=== PATIENT | female | born 2000 | race African-American/Black ===

== ENCOUNTER 2018-02-21 20:19 | Inpatient (IN) | payer BC ==
[~2018-02-21 20:19] MED LIST: ISOVUE-370 76%-LOCM 1 ML ONE
[2018-02-21] MEDS ORDERED: Morphine 4 MG/ML VIAL ONE ×2 (21:29→23:58)
[2018-02-21] MEDS ORDERED: Ondansetron HCl/PF 4 MG/2 ML Vial ONE (21:30)
[2018-02-21] MEDS ORDERED: Acetaminophen 500 MG TAB ONE (21:30)
[2018-02-21 21:50] LABS: #Lymphocytes 0.9 thou/uL (1.20-3.40); #Monocytes 0.4 thou/uL (0.11-0.59); %Basophils 0.4 % (0.0-1.0); %Eosinophils 0.5 % (0.0-10.0); %Lymphocytes 14.1 % (28.0-48.0); %Monocytes 6.5 % (0.0-4.0); %Neutrophils 78.5 % (31.0-61.0); Hemoglobin 11.4 g/dL (12.0-16.0); Mean Corpuscular HGB CONC 33.6 g/dL (32.0-36.0); Mean Corpuscular Hemoglobin 27.1 pg (25.0-35.0); Mean Corpuscular Volume 80.5 fl (77.0-87.0); Mean Platelet Volume 6.3 fL (7.4-10.4); Platelet Count 593 thou/uL (130-400); RBC Distribution Width 15.5 % (11.5-14.5); Red Blood Cell (RBC) Count 4.21 mill/uL (4.00-5.20); White Blood Cell (WBC) Count 6.4 thou/uL (4.8-10.8)
[2018-02-21 21:58] LABS: BHCG - Serum Negative (NEGATIVE); Pregs Control Background? CLEAR/WHITE (CLR/WHITE); Pregs Control Bar Appear? YES (CONTROL BAR)
[2018-02-21 22:12] LABS: ALT (SGPT) 15 U/L (8-55); AST (SGOT) 23 U/L (5-30); Albumin 3.3 g/dL (3.5-5.0); Alkaline Phosphatase 51 U/L (40-150); Anion Gap 13 mmol/L (10-20); BUN (Urea Nitrogen) 9 mg/dL (8.4-21.0); Bilirubin, Total 0.4 mg/dL (0.2-1.2); Calc. Creatinine Clearance 0 mL/min (70-130); Calcium 9.1 mg/dL (7.8-10.44); Carbon Dioxide 22 mmol/L (22-29); Chloride 105 mmol/L (98-107); Estimated GFR-MDRD Greater than 90; Globulin 5.4 g/dL (2.4-3.5); Glucose 106 mg/dL (70-105); Potassium 3.7 mmol/L (3.5-5.1); Protein, Total 8.7 g/dL (6.0-8.3); Sodium 136 mmol/L (136-145)
--- NOTE | 2018-02-21 22:43 | CT ---
CT ABDOMEN AND PELVIS WITH IV CONTRAST: 02/21/18 HISTORY: Bodyaches since last week. Fever. Abdominal pain that is exacerbated by coughing. COMPARISON: None available. FINDINGS: There is a small left pleural effusion with associated passive atelectasis. The right lung base is cl ear. The liver is enlarged in craniocaudal dimensions, but this may be related to normal variant. Liver ot herwise has a normal CT appearance. The spleen, pancreas, bilateral adrenal glands, kidneys, abdominal aorta, and urinary bladder demonst rate a normal CT appearance. The endometrium is fluid filled and distended. Moderate amount of retained fecal material is seen in the colon. The appendix is not definitely visualized, but no secondary signs are seen to suggest appendicitis. F luid filled tubular structures in the pelvis adjacent to the uterus which is thought to be related to fluid filled loops of unopacified small bowel. No free fluid, fluid collection, or lymphadenopathy is seen in the abdomen or pelvis. Osseous structures appear intact. IMPRESSION: 1. Fluid in endometrial canal. The endometrium is distended. Further evaluation with pelvic ultr asound is recommended. 2. Small left pleural effusion and atelectasis. 3. Element of constipation. 4. Above findings discussed with Dr. Finley in the Emergency Department on 02/21/18 at 2233 hours . POS: [facility]
[2018-02-21 22:57] LABS: Bilirubin Negative (Negative); Blood, Urine Negative (Negative); Clarity CLEAR (Clear); Glucose, Urine (Dipstick) Negative (Negative); Leukocyte Negative (Negative); Nitrite Negative (Negative); Protein, Urine (Dipstick) Negative (Neg-Trace)
[2018-02-21 22:59] LABS: Specific Gravity, Urine Greater than 1.060 (1.002-1.036)
--- NOTE | 2018-02-21 23:27 | RAD ---
PA AND LATERAL CHEST X-RAY 02/21/18 HISTORY: Fever. FINDINGS: The cardiac silhouette and pulmonary vasculature are within normal limits. The lungs are clear. There is contrast seen in the renal collecting systems related to recent contrasted study. Osseous structu res are intact. IMPRESSION: No acute cardiopulmonary process. POS: [facility]
[2018-02-21] MEDS ORDERED: Piperacillin/Tazobactam 3.375 GM in Sodium Chloride 0.9% 100 ML IVPB SCH (23:30)
[2018-02-21 23:59] LABS: MONO NEGATIVE CONTROL ZONE White (Negative) (White); MONO POSITIVE CONTROL Pink Line (Positive) (PINK/RED); Mononucleosis NEGATIVE (NEGATIVE)
[2018-02-22] MEDS ORDERED: cefOXitin 2 GM in Sodium Chloride 0.9% 100 ML IVPB SCH (01:45)
[2018-02-22] MEDS ORDERED: Doxycycline 100 MG CAP PO SCH (01:45)
[2018-02-22] MEDS ORDERED: Acetaminophen 325 MG TAB PO PRN (01:59)
[2018-02-22] MEDS ORDERED: Calcium Carbonate 500 MG ChewTAB PO PRN (02:02)
[2018-02-22] MEDS ORDERED: Ondansetron ODT 4 MG TAB PO PRN (02:02)
[2018-02-22] MEDS ORDERED: Senokot 8.6 MG TAB PO PRN (02:02)
[2018-02-22] MEDS ORDERED: Milk Of Magnesia 30 ML UDCUP PO PRN (02:02)
[2018-02-22] MEDS: Sodium Chloride 0.9% 1,000 ML IV SCH ×3 (02:23→18:24)
--- NOTE | 2018-02-22 04:49 | HP ---
DATE OF ADMISSION: 02/22/2018 CHIEF COMPLAINT: Generalized aches. HISTORY OF PRESENT ILLNESS: Patient is a 17-year-old female with recent strep throat diagnosed at [facility] presented to the emergency room with above complaints. Recently, patient was diagnosed with strep throat at [facility]. She was treated with intramuscular Bicillin 1,200,000 units. She continues to have sore throat along with low-grade fever. There is also some cough, which is essentially nonproductive. Over the last two days, patient developed abdominal discomfort that is more or less generalized with some nausea. She denies any vomiting. She is currently on control and does not have menstrual periods. She denies any sick contacts. In the emergency room, her initial vital signs showed temperature 101.5 with a T -max of 102.9, respirations 24, pulse rate of 122 with a blood pressure 136/83 with O2 saturation 100% on room air. Chest x-ray was negative for acute findings. CT scan of the abdomen and pelvis with IV contrast showed fluid in the endometrial canal with distended endometrium and small left pleural effusion with atelectasis. test was negative. Monospot test was negative. She received morphine, IV fluids, Zofran, Tylenol, cefoxitin, doxycycline and Zosyn in the emergency room. PAST MEDICAL HISTORY: Reviewed with the patient and none. PAST SURGICAL HISTORY: Reviewed with the patient and none. ALLERGIES: No known drug allergies. HOME MEDICATIONS: Reviewed with the patient and none. SOCIAL HISTORY: She denies current use of smoking. She has history of cannabis abuse in the past. She lives at home. FAMILY HISTORY: Negative for heart disease or malignancy. REVIEW OF SYSTEMS: The following complete review of systems was negative, unless otherwise mentioned in the HPI or below: Constitutional: Weight loss or gain, ability to conduct usual activities. Skin: Rash, itching. Eyes: Double vision, pain. ENT/Mouth: Nose bleeding, neck stiffness, pain, tenderness. Cardiovascular: Palpitations, dyspnea on exertion, orthopnea. Respiratory: Shortness of breath, wheezing, cough, hemoptysis, fever, or night sweats. Gastrointestinal: Poor appetite, abdominal pain, heartburn, nausea, vomiting, constipation, or diarrhea. Genitourinary: Urgency, frequency, dysuria, nocturia. Musculoskeletal: Pain, swelling. Neurologic/Psychiatric: Anxiety, depression. Allergy/Immunologic: Skin rash, bleeding tendency. PHYSICAL EXAMINATION: VITAL SIGNS: As discussed above. GENERAL: A 17-year-old female in no apparent distress. HEENT: Head atraumatic, normocephalic. Sclerae anicteric. Moist mucous membrane, no oral lesion. NECK: Supple, no JVD appreciated. No carotid bruit. LUNGS: Essentially clear to auscultation bilaterally. No wheezing, rales, or rhonchi. HEART: S1, S2 present. Regular rate, tachycardic. No rubs or gallops appreciated. ABDOMEN: Soft with mild generalized tenderness. No rebound, guarding, no costovertebral angle tenderness. EXTREMITIES: No edema or calf tenderness. NEUROLOGIC: Grossly nonfocal, moves all four extremities. PSYCHIATRIC: Alert, awake, oriented x3. SKIN: Warm and dry. LYMPH NODES: There is one lymph node palpable behind her right ear. LABORATORY AND X-RAY FINDINGS: CBC showed WBC 6.4 with hemoglobin 11.4, hematocrit 33.9, platelet of 593. Chemistries showed sodium 136, potassium 3.7 , chloride 105, bicarbonate 22, BUN 9, creatinine 0.72. Urinalysis was negative for wbc, bacteria. Specific gravity was greater than 1.06. Chest x-ray by my review as discussed above. CT scan of the abdomen as discussed above. Telemetry monitoring by my review showed sinus tachycardia. IMPRESSION: 1. Sepsis, probably secondary to genitourinary infection, ? acute PID. Vaginal ultrasound has been done, report pending at this time. 2. Generalized pain secondary to #1. 3. Chronic anemia, normochromic normocytic. 4. Constipation on the CT. 5. Small left pleural effusion and atelectasis. 6. Sinus tachycardia secondary to sepsis. 7. Dehydration. PLAN: Patient will be monitored on the medical floor. We will continue cefoxitin and doxycycline for possible PID. SWEET PICKLED FRUIT MAKER consult in the morning. IV hydration. We will keep her n.p.o. past midnight for possible intervention if needed. Deep venous thrombosis prophylaxis with sequential compression devices. Blood and urine cultures have been sent. Plan of care was discussed with the patient in detail. She stated understanding. MTDD
[2018-02-22 06:01] LABS: #Lymphocytes 1.3 thou/uL (1.20-3.40); #Monocytes 0.5 thou/uL (0.11-0.59); #Neutrophils 4.6 thou/uL (1.40-6.50); %Basophils 0.2 % (0.0-1.0); %Eosinophils 0.2 % (0.0-10.0); %Lymphocytes 20.5 % (28.0-48.0); %Monocytes 7.9 % (0.0-4.0); %Neutrophils 71.2 % (31.0-61.0); Hemoglobin 9.7 g/dL (12.0-16.0); Mean Corpuscular HGB CONC 32.7 g/dL (32.0-36.0); Mean Corpuscular Hemoglobin 26.5 pg (25.0-35.0); Platelet Count 507 thou/uL (130-400); RBC Distribution Width 15.2 % (11.5-14.5); Red Blood Cell (RBC) Count 3.64 mill/uL (4.00-5.20); White Blood Cell (WBC) Count 6.4 thou/uL (4.8-10.8)
[2018-02-22 06:06] LABS: BHCG - Serum Negative (NEGATIVE); Pregs Control Background? CLEAR/WHITE (CLR/WHITE); Pregs Control Bar Appear? YES (CONTROL BAR)
[2018-02-22 06:12] LABS: Anion Gap 10 mmol/L (10-20); BUN (Urea Nitrogen) 8 mg/dL (8.4-21.0); Calc. Creatinine Clearance 108 mL/min (70-130); Calcium 8.3 mg/dL (7.8-10.44); Carbon Dioxide 20 mmol/L (22-29); Chloride 109 mmol/L (98-107); Estimated GFR-MDRD Greater than 90; Glucose 86 mg/dL (70-105); Potassium 3.8 mmol/L (3.5-5.1); Sodium 135 mmol/L (136-145)
[2018-02-22] MEDS: cefOXitin 2 GM in Sodium Chloride 0.9% 100 ML IVPB SCH ×3 (09:12→20:00)
[2018-02-22] MEDS: Doxycycline 100 MG CAP PO SCH ×2 (09:16→20:00)
[2018-02-22] MEDS ORDERED: Morphine 5 MG/ML SYRINGE SLOW IVP PRN (09:45)
--- NOTE | 2018-02-22 10:05 | ULT ---
PRELIMINARY REPORT/[facility]/EMERGENCY AFTER HOURS PROCEDURE: EXAM: US Pelvis, Transvaginal EXAM DATE/TIME: Exam ordered 02/21/2018 11:55 PM CLINICAL HISTORY: 17 years old, female; Pain; Other: Generalized abd pain TECHNIQUE: Real-time transvaginal pelvic ultrasound (complete) with image documentation. Transvaginal imaging wa s used for better evaluation of the endometrium and adnexa. COMPARISON: No relevant prior studies available. FINDINGS: Uterus/cervix: Endometrial cavity is distended to 2.6 cm in AP dimension with heterogeneous solid red scular material, presumably blood products. No myometrial mass. Right ovary: Unremarkable. No mass. Normal blood flow. Left ovary: Unremarkable. No mass. Normal blood flow. Free fluid: Small to moderate volume of complex free fluid in the pelvis. IMPRESSION: 1. Endometrial cavity is distended to 2.6 cm in AP dimension with heterogeneous solid avascular mater ial, presumably blood products. 2. Small to moderate volume of complex free fluid in the pelvis. Thank you for allowing us to participate in the care of your patient. Dictated and Authenticated by: James Trinidad MD 02/22/2018 2:13 AM Central Time ([place] & [place]) FINAL REPORT PELVIC ULTRASOUND: Date: 02/21/18 HISTORY: Generalized abdominal pain. Pelvic pain. COMPARISON: None. TECHNIQUE: Endovaginal imaging of the pelvis is performed. Ovaries interrogated with Parker scale, color flow, Dop pler imaging, and spectral waveform analysis. FINDINGS: This report is in agreement with the preliminary report by Lesa. There is heterogeneous avascular ech ogenic material in the endometrial cavity which may represent blood products. Correlate clinically. T here is free fluid in the pelvis. Ovaries have a normal echotexture. There is vascular flow to both o varies. POS: [facility]
[2018-02-22] MEDS: Morphine 5 MG/ML SYRINGE SLOW IVP PRN ×2 (13:28→18:24)
[2018-02-22] MEDS ORDERED: Polyethylene Glycol 3350 17 GM Packet PO SCH (13:45)
--- NOTE | 2018-02-22 14:34 | CON ---
DATE OF CONSULTATION: 02/22/2018 TIME OF CONSULTATION: 0645 hours. ADMITTING PHYSICIAN: Dr. Jamin Sim. CONSULTING PHYSICIAN: Dr. Gio Powers. REASON FOR CONSULTATION: Fever and uterine abnormality. HISTORY OF PRESENT ILLNESS: Ms. Oconnor is a 17-year-old 0, who presents with several days of malaise and fever. She reports mild lower abdominal pain. She was seen at the [facility], received Bicillin. She was seen at [facility] and had a temperature of 102.9 with a p ulse of 122 and a blood pressure of 130/68. She was admitted for sepsis by [facility] ospitalist. CT and ultrasound evaluation revealed a fluid-filled complex distended endometrial canal and a small amount of free fluid in the pelvis and was otherwise fairly unremarkable. The patient h as been admitted with a presumptive diagnosis of sepsis, possible PID, and consultation was obtained. REALTIME REPORTER HISTORY: Sexually active. No new partners. On Depo for approximately 2 years. The patient took a six-month approximately 3 months ago and her last menstrual period was 3 months ago. She milagros es vaginal discharge. Of note, she has not had GC or chlamydia. The patient was diagnosed with thanh kingston HSV-1 approximately a month ago, has not had a recurrent outbreak. PAST MEDICAL HISTORY: None. PAST SURGICAL HISTORY: None. ALLERGIES: Denies. MEDICATIONS: Currently, on doxycycline and Rocephin antibiotic vann. SOCIAL HISTORY: Denies tobacco, alcohol, or IV drug abuse. FAMILY HISTORY: Noncontributory. REVIEW OF SYSTEMS: Please see Sound H and P. Patient denies any significant vaginal discharge or dy spareunia. She does report mild cramps. PHYSICAL EXAMINATION: VITAL SIGNS: Current temperature is 99.0, pulse is 102, and respirations 18. GI/: Limited exam reveals an abdomen that is soft and nontender. She does have some discomfort to deep palpation in the lower midline and lower left quadrant. External exam is unremarkable. Bimanu al is deferred. EXTREMITIES: Without clubbing, cyanosis, or edema. LABORATORY STUDIES: Microbiology pending. Hematocrit is 29%. Her white count is 6.4. She has a pl atelet count of 507. She has a slight left shift with 71% neutrophils, 20% lymphocytes, no bands are noted. A repeat basic metabolic panel after admission is unremarkable. Serum test is neg ative. 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 Ultrasound reveals complex endometrial fluid. It does not appear to be at an echo level, consistent with fibroids and that is even more definite on the CT scan. Greatest bong meter is about 3-4 cm of the enlargement of the endometrial cavity. There is a mild amount of free f luid noted in the pelvis and maybe just physiologic. IMPRESSION: Likely hematometra of uncertain etiology. The patient does not have a history of menses that was suggestive of an obstructive process. Fluid-filled endometrial cavity is not a common find ing with pelvic inflammatory disease. No evidence of tubo-ovarian abscess is noted. PLAN: Recommend continuing antibiotics as prescribed. We will discuss with Dr. Valencia, who is OB ho spitalist coming on in approximately 1 hour. The patient may be a good candidate for D and C and hys teroscopy during hospitalization versus a reevaluation as an outpatient.
[2018-02-22] MEDS ORDERED: HYDROcodone/Acetaminophen 7.5/325 mg Tablet PO PRN (18:50)
[2018-02-22] MEDS: Ibuprofen 800 MG TAB PO PRN (20:19)
[2018-02-22] MEDS: Ondansetron HCl/PF 4 MG/2 ML Vial IVP PRN (22:39)
[2018-02-23] MEDS: cefOXitin 2 GM in Sodium Chloride 0.9% 100 ML IVPB SCH ×4 (03:47→19:57)
[2018-02-23] MEDS: Sodium Chloride 0.9% 1,000 ML IV SCH ×3 (03:49→19:56)
[2018-02-23] MEDS: Ibuprofen 800 MG TAB PO PRN (05:40)
[2018-02-23 06:26] LABS: #Lymphocytes 0.8 thou/uL (1.20-3.40); #Monocytes 0.4 thou/uL (0.11-0.59); #Neutrophils 3.8 thou/uL (1.40-6.50); %Eosinophils 0.5 % (0.0-10.0); %Lymphocytes 15.8 % (28.0-48.0); %Monocytes 8.7 % (0.0-4.0); Hemoglobin 9.2 g/dL (12.0-16.0); Mean Corpuscular Hemoglobin 26.8 pg (25.0-35.0); Mean Corpuscular Volume 81.1 fl (77.0-87.0); Mean Platelet Volume 6.3 fL (7.4-10.4); Platelet Count 468 thou/uL (130-400); RBC Distribution Width 15.5 % (11.5-14.5); Red Blood Cell (RBC) Count 3.44 mill/uL (4.00-5.20)
[2018-02-23 06:38] LABS: Anion Gap 10 mmol/L (10-20); BUN (Urea Nitrogen) 6 mg/dL (8.4-21.0); Calc. Creatinine Clearance 110 mL/min (70-130); Calcium 8.4 mg/dL (7.8-10.44); Carbon Dioxide 22 mmol/L (22-29); Chloride 110 mmol/L (98-107); Estimated GFR-MDRD Greater than 90; Glucose 84 mg/dL (70-105); Potassium 3.8 mmol/L (3.5-5.1); Sodium 138 mmol/L (136-145)
[2018-02-23] MEDS: Doxycycline 100 MG CAP PO SCH ×2 (08:06→21:28)
[2018-02-23] MEDS: HYDROcodone/Acetaminophen 7.5/325 mg Tablet PO PRN ×4 (08:07→23:34)
--- NOTE | 2018-02-23 08:11 | PRG ---
DATE OF SERVICE: 02/23/2018 SUBJECTIVE: Hospital day #2, Mefoxin and doxycycline day 2. The patient is feeling slightly better this morning. She has tolerated a regular diet. She has no vomiting. OBJECTIVE: VITAL SIGNS: Temperature now 98.0 degrees, pulse 94, respirations 16, blood pressure 113/56, T-max w as 101.3 at 8:00 p.m. last night. ABDOMEN: On physical exam, her abdomen shows no guarding or rebound. LABORATORY DATA: CBC this morning shows a white count of 5.0, hemoglobin and hematocrit of 9.2 and 2 7.9 respectively, with a platelet count of 468,000. 75% neutrophils are seen. Blood cultures show n o growth to date. Urine culture shows no growth at 12 hours. I did obtain another set of blood cult ures last night when she was febrile. ASSESSMENT: Abdominal pain, fever with presumptive diagnosis of pelvic inflammatory disease, current ly on Mefoxin and doxycycline. Cultures so far negative. The patient appears improved this morning. PLAN: At this time, I would continue antibiotics and observe for clinical improvement. I did defer her D and C yesterday, and we will consider doing this if she does not continue to improve.
[2018-02-23] MEDS ORDERED: FLU VACC QS2017-18 36 mo. & older 0.5 ML SYRINGE IM ONE (09:00)
[2018-02-23] MEDS ORDERED: Sodium Chloride 0.9% 1,000 ML IV SCH (20:19)
--- NOTE | 2018-02-23 20:19 | PDOC.PN ---
- Subjective Encounter Start Date: 02/23/18 Encounter Start Time: 10:45 Patient seen and examined. 7/10 lower abd discomfort. No N/V. No overnight events. - Objective Resuscitation Status: Resuscitation Status FULL:Full Resuscitation MAR Reviewed: Yes Vital Signs & Weight: Vital Signs (12 hours) Temp Pulse Resp BP 02/23/18 16:15 98.5 F 95 18 113/69 02/23/18 12:10 98.4 F 89 18 107/60 Weight Weight 115 lb 8.356 oz I&O: 02/22/18 02/23/18 02/24/18 06:59 06:59 06:59 Intake Total 434 1495 Output Total 350 Balance 84 1495 Result Diagrams: 02/23/18 05:30 02/23/18 05:30 Additional Labs: Microbiology 02/22/18 20:25 Venous blood - Right Arm Blood Culture - Preliminary Specimen has been received and culture in progress. No Growth to date. 02/22/18 20:19 Venous blood - Right Arm Blood Culture - Preliminary Specimen has been received and culture in progress. No Growth to date. 02/21/18 21:46 Venous blood - Left Arm Blood Culture - Preliminary NO GROWTH AT 48 HOURS 02/21/18 21:39 Venous blood - Left Arm Blood Culture - Preliminary NO GROWTH AT 48 HOURS Phys Exam - Physical Examination Constitutional: NAD Respiratory: no wheezing, no rhonchi Cardiovascular: RRR, no rub Gastrointestinal: soft, non-tender, positive bowel sounds Musculoskeletal: no edema Neurological: moves all 4 limbs Dx/Plan - Plan DVT proph w/SCDs IMPRESSION: 1. Sepsis, probably secondary to Acute PID. 2. Generalized pain secondary to #1. 3. Chronic anemia, normochromic normocytic. 4. Constipation on the CT. on stool softener 5. Small left pleural effusion and atelectasis. 6. Sinus tachycardia secondary to sepsis. 7. Dehydration. PLAN: * Cont Cefoxitin and Doxy * Video Surveillance Technician following * Cont gentle IV hydration * Cont to monitor * Ambulate Review of Systems - Review of Systems Respiratory: negative: Cough, Dry, Shortness of Breath, Hemoptysis, SOB with Excertion, Pleuritic Pain, Sputum, Wheezing Cardiovascular: negative: chest pain, palpitations, orthopnea, paroxysmal nocturnal dyspnea, edema, light headedness - Medications/Allergies Allergies/Adverse Reactions: Allergies Allergy/AdvReac Type Severity Reaction Status Date / Time No Known Drug Allergies Allergy Verified 02/22/18 02:05 Medications: Current Medications Acetaminophen (Tylenol) 650 mg PO Q4H PRN PRN Reason: Headache/Fever or Mild Pain Last Admin: 02/22/18 05:23 Dose: 650 mg Hydrocodone Bitart/Acetaminophen ([place] 7.5/325) 2 tab PO Q4H PRN PRN Reason: Moderate Pain (4-6) Last Admin: 02/23/18 18:29 Dose: 2 tab Hydrocodone Bitart/Acetaminophen ([place] 7.5/325) 1 tab PO Q4H PRN PRN Reason: Mild Pain (1-3) Last Admin: 02/23/18 03:47 Dose: 1 tab Calcium Carbonate (Tums) 1,000 mg PO Q4H PRN PRN Reason: Heartburn or Indigestion Doxycycline Hyclate (Vibramycin) 100 mg PO BID [facility] Last Admin: 02/23/18 08:06 Dose: 100 mg Cefoxitin Sodium 2 gm/ Sodium (Chloride) 100 mls @ 100 mls/hr IVPB 0200,0800, 1400,2000 [facility] Last Admin: 02/23/18 19:57 Dose: 100 mls Sodium Chloride (Normal Saline 0.9%) 1,000 mls @ 125 mls/hr IV .Q8H [facility] Last Admin: 02/23/18 19:56 Dose: 1,000 mls Ibuprofen (Motrin) 800 mg PO Q8H PRN PRN Reason: PAIN/FEVER Last Admin: 02/23/18 05:40 Dose: 800 mg Magnesium Hydroxide (Milk Of Magnesium) 30 ml PO DAILYPRN PRN PRN Reason: Constipation Morphine Sulfate (Morphine) 4 mg SLOW IVP Q4H PRN PRN Reason: Severe Pain (7-10) Last Admin: 02/22/18 18:24 Dose: 4 mg Ondansetron HCl (Zofran Odt) 4 mg PO Q6H PRN PRN Reason: Nausea/Vomiting Ondansetron HCl (Zofran) 4 mg IVP Q6H PRN PRN Reason: Nausea/Vomiting Last Admin: 02/22/18 22:39 Dose: 4 mg Saccharomyces Boulardii (Florastor) 250 mg PO DAILY [facility] Senna (Senokot) 2 tab PO HSPRN PRN PRN Reason: Constipation
[2018-02-23] MEDS: Ondansetron HCl/PF 4 MG/2 ML Vial IVP PRN (23:34)
[2018-02-24] MEDS: Ibuprofen 800 MG TAB PO PRN (02:27)
[2018-02-24] MEDS: cefOXitin 2 GM in Sodium Chloride 0.9% 100 ML IVPB SCH ×2 (02:27→10:38)
[2018-02-24] MEDS: Ondansetron HCl/PF 4 MG/2 ML Vial IVP PRN (05:31)
[2018-02-24] MEDS ORDERED: Magnesium Citrate 300 ML BOT PO SCH (07:45)
--- NOTE | 2018-02-24 08:09 | PRG ---
DATE OF SERVICE: 02/24/2018 HISTORY OF PRESENT ILLNESS: The patient is a 17-year-old admitted to the hospital for abdominal pain and overall malaise and fever. The patient was diagnosed with a possible PID by the hospitalist donny blue and consulted MECHANICAL TECHNICIAN hospitalist for evaluation. The patient is on cefoxitin and doxycycline. She has remained afebrile through her stay and her white count has been normal. On reviewing the record , the patient is noted to have stool noted on CT. The patient reports she has constipation, and when she does have a bowel movement that they are pebble like stools. She reports that her pain is impro blanca some as compared to yesterday, as she is able to move about without feeling pain. PHYSICAL EXAMINATION: VITAL SIGNS: Today, blood pressure is 124/72, temperature 98.0, pulse of 89, respiratory rate of 18. GENERAL: She appears to be in no acute distress. She is alert, oriented, cooperative, and pleasant to interact with. HEENT: Head is normocephalic, atraumatic. ABDOMEN: Soft. She has more tenderness on the right side than the left. LABORATORY DATA: CBC yesterday, white count of 5, hemoglobin of 9.2, hematocrit 27.9, platelets of 4 68,000. ASSESSMENT AND PLAN: The patient is a 17-year-old female, on cefoxitin and doxycycline for presumed pelvic inflammatory disease. Subjectively, the patient reports she is feeling a little bit better, a s the pain is not felt with activity. Patient reports significant constipation. I will be giving he r a bottle of magnesium citrate today in an effort to clean out her colon and revaluate her symptoms. We will defer all definitive decision making to her primary team. Dr. Cruz will be the oncoming O B/SORT MANAGER hospitalist and can reevaluate her this afternoon.
[2018-02-24] MEDS ORDERED: Saccharomyces boulardii 250 MG CAP PO SCH (09:00)
[2018-02-24] MEDS: Doxycycline 100 MG CAP PO SCH (10:40)
[2018-02-24 11:57] VITALS: BP 121/77; TEMP 97.8
--- NOTE | 2018-02-24 12:45 | PDOC.EVN ---
Event Note - Event Note Event Note: OBGyN follow up: Patient seen this AM by Dr Granados. As per Gynecology, we collecetd a GC/Chl culture today as one was not taken on admit. Although she has been on ABX therapy already, this collection will complete her diagnostic eval. Gynecology has signed off the care. For outpatient medication: The patient may continue Doxy 100mg po BID X 7 days and Flaghyl 500mg 1 po BID x 7 days. She may follow up with her OBGYN in 2 weeks or see any ObGyn at [facility] [place] on [address] (pt to call for appointment). Final discharge per Medicine.
--- NOTE | 2018-02-24 18:24 | DIS ---
DISCHARGE DISPOSITION: Home. FOLLOWUP: Follow up with primary care physician, Dr. Thapa in 1 week. Follow up with [facility] in 1 week. INPATIENT CONSULTANTS: DRIVE IN WAITER/WAITRESS Hospitalist. ALLERGIES: No known drug allergies. The patient was seen and examined on the day of discharge. Denies any new complaints, no chest pain, shortness of breath, or palpitations. DISCHARGE MEDICATIONS: Flagyl 500 mg twice daily for 1 week, doxycycline 100 mg twice daily for 1 we ek. BRIEF HOSPITAL COURSE: The patient is a 17-year-old female with recent strep throat, presented to [facility] with generalized aches and pains. Please refer to the history and physical dated 02/23/20 for further details. The patient was admitted to the medical floor with a diagnosis of acute PID (pelvic inflammatory dise ase). The patient was seen by RUBBER MOLD MAKER Hospitalist. A pelvic ultrasound showed distended endometrial cavity with solid avascular material. She also had a CT scan of the abdomen that showed some endomet rial thickening. She showed good improvement with IV antibiotics. The patient has been afebrile ove r the last 36 hours. The patient has been cleared for discharge by RUBBER MOLD MAKER. She was advised to follo w up with [facility] in 1 week. FINAL DIAGNOSES: 1. Sepsis secondary to acute pelvic inflammatory disease, improved with conservative measures. 2. Generalized aches and pains on admission secondary to #1. 3. Chronic normochromic normocytic anemia. 4. Constipation. 5. Sinus tachycardia secondary to sepsis. 6. Dehydration. 7. Small left pleural effusion and atelectasis. Plan of care was discussed with the patient in detail. She stated understanding.
[2018-02-25 22:30] LABS: Chlamydia by PCR Not Detected (NotDetected); GC by PCR Not Detected (NotDetected)
== END 2018-02-24 14:40 | disposition home or self-care (01) | DRG 872 ==
LOC: ERS 20:19 → 3SE 02-22 01:32
PROVIDERS: ADMIT Internal Medicine; ATTEND Internal Medicine
DX: A41.9 Sepsis, unspecified organism (principal); J90 Pleural effusion, not elsewhere classified; J98.11 Atelectasis; D50.0 Iron deficiency anemia secondary to blood loss (chronic); K59.00 Constipation, unspecified; E86.0 Dehydration; N73.9 Female pelvic inflammatory disease, unspecified; Z22.4 Carrier of infections with a predominantly sexual mode of transmission
CPT/HCPCS: 36415; 71045; 74177; 76856; 80048; 80053; 81003; 83605; 84703; 85025; 86308; 87040; 87086; 87491; 87591; 87804; 96361; 96365; 96375; J2270; J0694; J2405; J2543; J7050; Q0162

== ENCOUNTER 2018-02-27 11:34 | Emergency (ER) | payer BC ==
[2018-02-27 13:07] LABS: #Lymphocytes 0.8 thou/uL (1.20-3.40); #Monocytes 0.3 thou/uL (0.11-0.59); #Neutrophils 7.1 thou/uL (1.40-6.50); %Basophils 0.1 % (0.0-1.0); %Eosinophils 0.6 % (0.0-10.0); %Lymphocytes 9.8 % (28.0-48.0); %Monocytes 3.8 % (0.0-4.0); %Neutrophils 85.8 % (31.0-61.0); Hemoglobin 10.8 g/dL (12.0-16.0); Mean Corpuscular HGB CONC 33.5 g/dL (32.0-36.0); Mean Corpuscular Volume 80.7 fl (77.0-87.0); Mean Platelet Volume 5.9 fL (7.4-10.4); Platelet Count 682 thou/uL (130-400); RBC Distribution Width 15.9 % (11.5-14.5); Red Blood Cell (RBC) Count 3.99 mill/uL (4.00-5.20); White Blood Cell (WBC) Count 8.3 thou/uL (4.8-10.8)
[2018-02-27 13:27] LABS: ALT (SGPT) 60 U/L (8-55); AST (SGOT) 72 U/L (5-30); Albumin 3.2 g/dL (3.5-5.0); Alkaline Phosphatase 106 U/L (40-150); Anion Gap 13 mmol/L (10-20); BUN (Urea Nitrogen) 6 mg/dL (8.4-21.0); Bilirubin, Total 0.3 mg/dL (0.2-1.2); Calc. Creatinine Clearance 0 mL/min (70-130); Calcium 9.4 mg/dL (7.8-10.44); Carbon Dioxide 21 mmol/L (22-29); Chloride 107 mmol/L (98-107); Estimated GFR-MDRD Greater than 90; Globulin 5.4 g/dL (2.4-3.5); Glucose 90 mg/dL (70-105); Lipase 36 U/L (8-78); Potassium 3.6 mmol/L (3.5-5.1); Protein, Total 8.6 g/dL (6.0-8.3); Sodium 137 mmol/L (136-145)
[2018-02-27 13:29] LABS: BHCG - Serum Negative (NEGATIVE); Pregs Control Background? CLEAR/WHITE (CLR/WHITE); Pregs Control Bar Appear? YES (CONTROL BAR)
[2018-02-27] MEDS ORDERED: Acetaminophen 325 MG TAB ONE (14:02)
[2018-02-27] MEDS ORDERED: Ketorolac Tromethamine 30 MG/ML VIAL ONE (14:02)
--- NOTE | 2018-02-27 14:16 | ULT ---
ULTRASOUND PELVIC TRANSVAGINAL WITH DOPPLER: Date: 02/27/18 HISTORY: Pain. COMPARISON: Pelvic ultrasound dated 02/21/18. TECHNIQUE: Real-time Parker scale with color Doppler and spectral analysis of the pelvis was performed via transva ginal approach. FINDINGS: The uterus measures 7.3 x 4.9 x 3.6 cm. Endometrial thickness is 1.6 cm. Adequate vascular flow to both ovaries. There is complex debris within the endometrial cavity. IMPRESSION: Complex fluid in the endometrial canal, similar to comparison examination. This may represent hemorrh age or infected fluid. POS: [facility]
[2018-02-27 14:26] LABS: MONO NEGATIVE CONTROL ZONE White (Negative) (White); MONO POSITIVE CONTROL Pink Line (Positive) (PINK/RED); Mononucleosis NEGATIVE (NEGATIVE)
[2018-02-27 16:21] LABS: Bilirubin Negative (Negative); Blood, Urine Small (Negative); Clarity CLOUDY (Clear); Glucose, Urine (Dipstick) Negative (Negative); Leukocyte Negative (Negative); Nitrite Negative (Negative); Protein, Urine (Dipstick) Negative (Neg-Trace); Specific Gravity, Urine 1.014 (1.002-1.036); Urobilinogen 0.2 mg/dL (0.2-1.0); pH, Urine 7.5 (5.0-9.0)
[2018-02-27 16:23] LABS: WBC/HPF 0-3 HPF (0-3)
[2018-02-27 16:27] LABS: Pathc Cast-AUWi Flag 3.19 (0-2.49)
[2018-02-27 16:34] LABS: Amphetamine Not Detected (NotDetected); Barbiturates Screen Not Detected (NotDetected); Benzodiazepine Screen Not Detected (NotDetected); Cocaine Metabolite Screen Not Detected (NotDetected); Medtox Control Line Valid? VALID (VALID); Medtox Reader # READER 4; Methadone Not Detected (NotDetected); Methamphetamine Not Detected (NotDetected); Opiate Screen Not Detected (NotDetected); Oxycodone Screen Not Detected (NotDetected); Phencyclidine (PCP) Not Detected (NotDetected); THC/Cannabinoid Screen Not Detected (NotDetected); Tricyclic Screen Not Detected (NotDetected)
[2018-02-27 16:38] LABS: Bacteria/HPF 2+ HPF (None Seen)
[2018-02-27 16:39] LABS: Hyaline Casts/LPF 0-3 HYALINE CAST LPF (0-3 Hyaline); Manual Microscopic Reviewed? No Path Casts Seen; RBC/HPF 0-3 HPF (0-3); Renal Epithelial None Seen HPF (0-3); Transitional Epithelial NONE SEEN HPF (0-3)
== END 2018-02-27 17:44 | disposition home or self-care (01) ==
LOC: ERS 11:34
DX: B37.3 Candidiasis of vulva and vagina (principal); B37.0 Candidal stomatitis; B00.1 Herpesviral vesicular dermatitis
CPT/HCPCS: 36415; 76856; 80053; 80306; 81003; 81015; 83605; 83690; 84703; 85025; 86308; 96361; 96374; J1885

== ENCOUNTER 2018-03-12 10:59 | Outpatient (CLI) | payer BC | END 2018-03-12 11:00 | disposition home or self-care (01) | LOC: BICULT 10:59 | PROVIDERS: ATTEND Family Medicine | DX: R10.11 Right upper quadrant pain (principal) | CPT/HCPCS: 76705 ==

== ENCOUNTER 2018-10-08 11:12 | Emergency (ER) | payer BC ==
[2018-10-08 13:27] LABS: #Lymphocytes 0.6 thou/uL (1.20-3.40); #Monocytes 0.4 thou/uL (0.11-0.59); #Neutrophils 8.7 thou/uL (1.40-6.50); %Eosinophils 0.2 % (0.0-10.0); %Lymphocytes 6.6 % (28.0-48.0); %Monocytes 3.8 % (0.0-4.0); %Neutrophils 89.4 % (31.0-61.0); Hemoglobin 12.8 g/dL (12.0-16.0); Mean Corpuscular HGB CONC 31.7 g/dL (32.0-36.0); Mean Platelet Volume 7.3 fL (7.4-10.4); Platelet Count 428 thou/uL (130-400); RBC Distribution Width 14.9 % (11.5-14.5); Red Blood Cell (RBC) Count 4.91 mill/uL (4.00-5.20); White Blood Cell (WBC) Count 9.8 thou/uL (4.8-10.8)
--- NOTE | 2018-10-08 13:42 | RAD ---
2 VIEWS CHEST: Date: 10/08/18 PROVIDED CLINICAL HISTORY: Chest discomfort. Body aches. FINDINGS: Comparison made with the study dated 02/21/18. Cardiac and mediastinal silhouette is within normal limits. No definite focal consolidation, pleural fluid, or pneumothorax apparent. IMPRESSION: No evidence for an acute cardiopulmonary process. POS: [facility]
[2018-10-08 13:51] LABS: ALT (SGPT) 17 U/L (8-55); AST (SGOT) 24 U/L (5-34); Albumin 4.2 g/dL (3.5-5.0); Alkaline Phosphatase 63 U/L (40-150); Anion Gap 12 mmol/L (10-20); BUN (Urea Nitrogen) 8 mg/dL (7.0-18.7); Bilirubin, Total 0.4 mg/dL (0.2-1.2); Calc. Creatinine Clearance 0 mL/min (70-130); Carbon Dioxide 26 mmol/L (22-29); Chloride 103 mmol/L (98-107); Estimated GFR-MDRD Greater than 90; Globulin 4.9 g/dL (2.4-3.5); Glucose 93 mg/dL (70-105); Lipase 24 U/L (8-78); Potassium 4.7 mmol/L (3.5-5.1); Protein, Total 9.1 g/dL (6.0-8.3); Sodium 136 mmol/L (136-145)
[2018-10-08 14:08] LABS: Bilirubin Negative (Negative); Blood, Urine Negative (Negative); Clarity CLEAR (Clear); Glucose, Urine (Dipstick) Negative (Negative); Leukocyte Small (Negative); Nitrite Negative (Negative); Protein, Urine (Dipstick) Negative (Neg-Trace); Specific Gravity, Urine 1.011 (1.002-1.036); Urobilinogen 0.2 mg/dL (0.2-1.0)
[2018-10-08 14:12] LABS: Pregnancy Test - Urine (BHCG) Negative (Negative); Pregu Control Background? CLEAR/WHITE (CLR/WHITE); Pregu Control Bar Appear? YES (CONTROL BAR); Specific Gravity 1.011 (1.002-1.036)
[2018-10-08 14:14] LABS: Bacteria/HPF Rare-Few HPF (None Seen); Hyaline Casts/LPF 0-3 HYALINE CAST LPF (0-3 Hyaline); RBC/HPF 0-3 HPF (0-3); WBC/HPF 0-3 HPF (0-3)
[2018-10-08] MEDS ORDERED: Water For Inject, Bacteriostat 30 ML ONE (16:10)
[2018-10-08] MEDS ORDERED: methylPREDNISolone Sod Succ/PF 125 MG/2 ML VIAL ONE (16:10)
--- NOTE | 2018-10-17 17:49 | EKG ---
Test Reason : Blood Pressure : / mmHG Vent. Rate : 085 BPM Atrial Rate : 085 BPM P-R Int : 132 ms QRS Dur : 088 ms QT Int : 352 ms P-R-T Axes : 005 010 019 degrees QTc Int : 418 ms Normal sinus rhythm with sinus arrhythmia Cannot rule out Anterior infarct , age undetermined Abnormal ECG Confirmed by VIVIANA GASPAR ([id number]), editor newspaper HAKEEM DAVILA ([id number]) on 10/17/2018 5:48:51 PM Referred By: Confirmed By:VIVIANA GASPAR
== END 2018-10-08 16:43 | disposition home or self-care (01) ==
LOC: ERS 11:12
DX: M32.9 Systemic lupus erythematosus, unspecified (principal); Z79.899 Other long term (current) drug therapy
CPT/HCPCS: 36415; 71046; 80053; 81003; 81015; 81025; 82150; 83690; 85025; 85652; 87804; 93005; 96372; J2930

== ENCOUNTER 2019-11-12 17:17 | Emergency (ER) | payer BC, MEDICAID ==
[2019-11-12 18:06] LABS: #Monocytes 0.6 thou/uL (0.11-0.59); #Neutrophils 6.5 thou/uL (1.40-6.50); %Basophils 0.2 % (0.0-1.0); %Eosinophils 0.4 % (0.0-10.0); %Monocytes 7.5 % (0.0-10.0); %Neutrophils 79.9 % (42.0-75.0); Hemoglobin 12.4 g/dL (12.0-16.0); Mean Corpuscular HGB CONC 33.8 g/dL (32.0-36.0); Mean Corpuscular Hemoglobin 28.8 pg (27.0-31.0); Mean Corpuscular Volume 85.3 fL (78.0-98.0); Mean Platelet Volume 7.8 fL (7.4-10.4); Platelet Count 272 thou/uL (130-400); RBC Distribution Width 16.3 % (11.5-14.5); White Blood Cell (WBC) Count 8.1 thou/uL (4.8-10.8)
[2019-11-12 18:28] LABS: ALT (SGPT) 7 U/L (8-55); AST (SGOT) 17 U/L (5-34); Albumin 3.5 g/dL (3.5-5.0); Alkaline Phosphatase 85 U/L (40-110); Anion Gap 11 mmol/L (10-20); BUN (Urea Nitrogen) 6 mg/dL (7.0-18.7); Bilirubin, Total 0.3 mg/dL (0.2-1.2); Calc. Creatinine Clearance 0 mL/min (70-130); Calcium 9.1 mg/dL (7.8-10.44); Carbon Dioxide 23 mmol/L (22-29); Chloride 107 mmol/L (98-107); Estimated GFR-MDRD Greater than 90; Globulin 3.6 g/dL (2.4-3.5); Glucose 95 mg/dL (70-105); Potassium 3.6 mmol/L (3.5-5.1); Protein, Total 7.1 g/dL (6.0-8.3); Sodium 137 mmol/L (136-145)
[2019-11-12 20:17] LABS: Bacteria/HPF 2+ HPF (None Seen); Bilirubin Negative (Negative); Blood, Urine Negative (Negative); Clarity Turbid (Clear); Glucose, Urine (Dipstick) Normal (Negative); Leukocyte 250 Leu/uL (Negative); Mucous/LPF Rare LPF (<2+); Nitrite Negative (Negative); Protein, Urine (Dipstick) 10 mg/dL (Neg-Trace); Urobilinogen Normal mg/dL (Less than 2)
[2019-11-12] MEDS ORDERED: Acetaminophen 325 MG TAB ONE (21:18)
== END 2019-11-12 21:20 | disposition home or self-care (01) ==
LOC: ERS 17:17
DX: O99.89 Other specified diseases and conditions complicating pregnancy, childbirth and the puerperium (principal); R55 Syncope and collapse; O23.42 Unspecified infection of urinary tract in pregnancy, second trimester; Z79.899 Other long term (current) drug therapy; Z3A.27 27 weeks gestation of pregnancy
CPT/HCPCS: 36415; 80053; 81003; 81015; 84484; 85025; 93005; 96360

== ENCOUNTER 2019-12-20 22:09 | Emergency (ER) | payer OTHER ==
[2019-12-20 22:34] LABS: #Eosinphils 0.1 thou/uL (0.0-0.7); #Lymphocytes 1.1 thou/uL (1.20-3.40); #Monocytes 0.7 thou/uL (0.11-0.59); #Neutrophils 8.7 thou/uL (1.40-6.50); %Basophils 0.2 % (0.0-1.0); %Eosinophils 0.5 % (0.0-10.0); %Lymphocytes 10.7 % (21.0-51.0); %Monocytes 6.7 % (0.0-10.0); Hemoglobin 12.5 g/dL (12.0-16.0); Mean Corpuscular HGB CONC 33.4 g/dL (32.0-36.0); Mean Corpuscular Hemoglobin 28.5 pg (27.0-31.0); Mean Corpuscular Volume 85.5 fL (78.0-98.0); Mean Platelet Volume 8.2 fL (7.4-10.4); Platelet Count 274 thou/uL (130-400); RBC Distribution Width 15.6 % (11.5-14.5); Red Blood Cell (RBC) Count 4.36 mill/uL (4.20-5.40); White Blood Cell (WBC) Count 10.6 thou/uL (4.8-10.8)
[2019-12-20 23:03] LABS: ALT (SGPT) 8 U/L (8-55); AST (SGOT) 16 U/L (5-34); Albumin 3.4 g/dL (3.5-5.0); Alkaline Phosphatase 122 U/L (40-110); Anion Gap 13 mmol/L (10-20); BUN (Urea Nitrogen) 5 mg/dL (7.0-18.7); Bilirubin, Total 0.4 mg/dL (0.2-1.2); CK (CPK) 49 U/L (29-168); Calc. Creatinine Clearance 0 mL/min (70-130); Carbon Dioxide 24 mmol/L (22-29); Chloride 103 mmol/L (98-107); Estimated GFR-MDRD Greater than 90; Globulin 3.9 g/dL (2.4-3.5); Glucose 87 mg/dL (70-105); Potassium 3.4 mmol/L (3.5-5.1); Protein, Total 7.3 g/dL (6.0-8.3); Sodium 137 mmol/L (136-145)
--- NOTE | 2019-12-20 23:06 | RAD ---
RADIOGRAPH CHEST 1 VIEW: DATE: 12/20/2019 HISTORY: 19-year-old female with dyspnea and chest pain FINDINGS: There are no airspace densities, pulmonary edema, pneumothorax, or cardiomegaly. The lateral costophr enic angles are sharp. IMPRESSION: No acute cardiopulmonary findings.
--- NOTE | 2019-12-20 23:54 | ULT ---
ULTRASOUND DOPPLER DUPLEX VENOUS BILATERAL LOWER EXTREMITIES: DATE: 12/20/2019 11:41 pm. HISTORY: Third trimester, 32 week 19-year-old female with dyspnea and bilateral lower extremity edema . TECHNIQUE: Grayscale, color-flow, and spectral analysis, of major veins of bilateral lower extremities. FINDINGS: There is demonstration of blood flow with normal compressibility, of the bilateral common femoral, pr ofunda femoral, greater saphenous, femoral, popliteal, and posterior tibial, veins. IMPRESSION: Negative. No deep venous thrombosis of bilateral lower extremities.
[2019-12-21] MEDS ORDERED: Acetaminophen 500 MG TAB ONE (01:53)
--- NOTE | 2019-12-21 08:56 | CT ---
PRELIMINARY REPORT/[facility]/EMERGENCY AFTER HOURS PROCEDURE: EXAM: CTA Chest with Intravenous Contrast CLINICAL HISTORY: 19 YO F 32 weeks presents to ED c/o SOB and chest pain x 7 days. Pt states the pain and SOB got worse today. The pt also reports edema to legs and fingers. The pt denies cough, fever, urinary c omplaints, vaginal discharge/bleeding. The pt has hx of lupus, takes medication for it. She reports it has not flared up in a while. The pt has no hx of smoking or lung issues. TECHNIQUE: Axial CTA images of the chest with intravenous contrast. MIP reconstructed images were created and re viewed. CONTRAST: With; ISOVUE 370,100mL COMPARISON: None provided. FINDINGS: PULMONARY ARTERIES There is no intraluminal filling defect suspicious for PE. AORTA No thoracic aortic aneurysm or dissection. LUNGS The lungs are clear. No pulmonary mass. No focal airspace consolidation. PLEURAL SPACES No pleural effusion. No pneumothorax. HEART AND MEDIASTINUM No cardiomegaly. No significant pericardial effusion. LYMPH NODES No lymphadenopathy. BONES No focal osseous abnormality or acute fracture. CHEST WALL AND UPPER ABDOMEN Images through the upper abdomen are unremarkable. The chest wall is unr emarkable. IMPRESSION: No evidence of acute pulmonary artery embolism. ELECTRONICALLY SIGNED BY: Luca Willis MD Dec 21, 2019 1:10:08 AM [employer] This report is intended for review by the ordering physician only, in accordance of law. If you recei ve this report in error, please call [facility] at [phone]. FINAL REPORT EMERGENT AFTER HOURS CT ANGIOGRAM OF THE THORAX WITH IV CONTRAST AND 3D RECONSTRUCTIONS: HISTORY: Shortness of breath and chest pain for 7 days. Dyspnea. IMPRESSION: 1. No evidence of a pulmonary embolus involving the central or proximal segmental pulmonary arteries . However, there is limited opacification of the more distal segmental and subsegmental pulmonary ar teries limiting evaluation of pulmonary emboli at these levels. 2. Thoracic aorta is normal in caliber without evidence of an aortic dissection. 3. Small pericardial effusion. 4. Minimal linear and patchy densities in the right middle lobe and lingula likely related to atelec tasis. 5. Visualized upper abdomen demonstrates a normal CT appearance for phase of imaging. 6. Findings are in agreement with the preliminary report by [facility]. POS: OFF
[2019-12-21] MEDS ORDERED: ISOVUE-370 76%-LOCM 1 ML ONE (13:17)
== END 2019-12-21 02:00 | disposition home or self-care (01) ==
LOC: ERS 22:09
DX: O99.89 Other specified diseases and conditions complicating pregnancy, childbirth and the puerperium (principal); R07.89 Other chest pain; R06.02 Shortness of breath; M32.9 Systemic lupus erythematosus, unspecified; Z79.899 Other long term (current) drug therapy; Z3A.32 32 weeks gestation of pregnancy
CPT/HCPCS: 71045; 71275; 80053; 82550; 84484; 85025; 93005; 93970; 94760; 96360; Q9966

== ENCOUNTER 2020-01-13 20:32 | Day surgery (SDC) | payer BC, OTHER ==
[2020-01-13 21:13] VITALS: BMI 25.5
[2020-01-13] MEDS ORDERED: hydrALAZINE 20 MG/ML VIAL SLOW IVP PRN (22:02)
--- NOTE | 2020-01-13 23:10 | ULT ---
LIMITED OBSTETRICAL ULTRASOUND FOR BIOPHYSICAL PROFILE INDICATION: Decreased movement TECHNIQUE: Grayscale, M-mode Doppler, color Doppler and spectral Doppler images were obtained. Biophy sical profile was submitted by the environmental sampling technician. Imaging is focused on the clinical indication. COMPARISON: No relevant prior studies available. GESTATION: Number of gestations: Single. Presentation: Cephalic. heart rate: 144 bpm. Placental location: Anterior Previa: No evidence for previa. Cervical length: Not measured INDIRA: 9.0 cm. Biophysical profile: tone: 2 out of 2. breathin out of 2 movements: 2 out of 2 Amniotic fluid level: 2 out of 2 IMPRESSION: 1. Biophysical profile of 8 out of 8. 2. INDIRA of 9.0 cm.
--- NOTE | 2020-01-14 04:41 | PRG ---
DATE OF SERVICE: 01/13/2020 PRIMARY OB: Dr. Newton Hui. CHIEF COMPLAINT: Decreased movement. HISTORY OF PRESENT ILLNESS: The patient is a 19-year-old G1, P0 female with an intrauterine at 36 weeks, presenting to Labor and Delivery with a day history of decreased movement. PAST MEDICAL HISTORY: Significant for migraines, depression, anxiety, lupus, and HSV-2. PAST SURGICAL HISTORY: Negative. MEDICATIONS: vitamins, prednisone, Bonjesta, Zofran, acyclovir, Plaquenil. SOCIAL HISTORY: Denies drug, alcohol, or tobacco use. ALLERGIES: NO KNOWN DRUG ALLERGIES. OB LABS: Blood type is O positive. Antibody screen is negative. She is rubella immune. RPR nonreactive. Hepatitis B surface antigen nonreactive. HIV nonreactive. Sickle cell negative. GC chlamydia negative. One-hour Glucola is 58 and is GBS positive. REVIEW OF SYSTEMS: The patient denies any recent illness, fever, fall, headache, chest pain, shortness of breath, nausea, vomiting, diarrhea, constipation, hip problems, knee problems, muscle weakness, vaginal bleeding, leakage of fluid, urinary urgency or frequency. PHYSICAL EXAMINATION: VITAL SIGNS: Blood pressure is 121/82, heart rate of 98, respiratory rate 18, temperature 98.1. GENERAL: She appears to be in no acute distress. She is alert, oriented, cooperative, and pleasant to interact with. HEAD: Normocephalic and atraumatic. LUNGS: Clear to auscultation bilaterally. HEART: Has regular rate and rhythm. ABDOMEN: Gravid, soft, nontender. EXTREMITIES: Nontender and nonedematous. GENITOURINARY: Has been deferred. heart tracing shows the fetus with a baseline in the 140s with moderate long-term variability. The patient has experienced some 15 x 15 accelerations. Tocometer showing some irritability and occasional uterine contractions. BPP is also performed and found to be 8/8 with an INDIRA of 9. ASSESSMENT AND PLAN: The patient is a 19-year-old G1, P0 female with an intrauterine at 36 weeks, presenting with decreased movement and a history of lupus on multiple medications. Both NST and BPP are reassuring. Her INDIRA is low, but normal at 9 cm. The patient has made contact with Dr. Hui who has asked for her to call tomorrow to review her kick counts with him. The patient is being discharged home with labor precautions and follow up with Dr. Hui. Fetus has a category 1 tracing and reactive NST and a reassuring BPP. Job ID: [id number]
== END 2020-01-13 22:45 | disposition home or self-care (01) ==
LOC: L&D/OP 20:32
PROVIDERS: ATTEND Obstetrics & Gynecology
DX: O36.8130 Decreased fetal movements, third trimester, not applicable or unspecified (principal); O99.343 Other mental disorders complicating pregnancy, third trimester; F41.9 Anxiety disorder, unspecified; F32.9 Major depressive disorder, single episode, unspecified; O98.513 Other viral diseases complicating pregnancy, third trimester; B00.9 Herpesviral infection, unspecified; O99.113 Other diseases of the blood and blood-forming organs and certain disorders involving the immune mechanism complicating pregnancy, third trimester; M32.9 Systemic lupus erythematosus, unspecified; Z3A.36 36 weeks gestation of pregnancy; Z79.899 Other long term (current) drug therapy
CPT/HCPCS: 76819

== ENCOUNTER 2020-01-27 09:32 | Inpatient (IN) | payer BC, OTHER ==
[2020-01-27] MEDS ORDERED: Bupivacaine 0.25% HCL 30 ML VIAL ONE (09:33)
[2020-01-27] MEDS ORDERED: Butorphanol Tartrate 1 MG/ML VIAL SLOW IVP PRN (19:16)
[2020-01-27] MEDS ORDERED: Ondansetron PF 4 MG/2 ML Vial IVP PRN (19:16)
[2020-01-27] MEDS ORDERED: NS w/ Oxytocin 10 units 500 ML IV SCH ×2 (19:16)
[2020-01-27] MEDS ORDERED: hydrALAZINE 20 MG/ML VIAL SLOW IVP PRN (19:16)
[2020-01-27] MEDS ORDERED: Penicillin G Potassium 5 MILL.UNITS in Sodium Chloride 0.9% 100 ML IVPB SCH (19:16)
[2020-01-27] MEDS ORDERED: Zolpidem Tartrate 5 MG TAB PO PRN (19:16)
[2020-01-27] MEDS ORDERED: HYDROcodone/Acetaminophen 5/325 mg Tablet PO PRN ×2 (19:16)
[2020-01-27] MEDS ORDERED: Diphenoxylate HCl/Atropine Tablet PO PRN ×2 (19:16)
[2020-01-27] MEDS ORDERED: NS / Oxytocin 40 units/1000ml 1,000 ML IV PRN (19:16)
[2020-01-27] MEDS ORDERED: Ibuprofen 800 MG TAB PO PRN (19:16)
[2020-01-27] MEDS ORDERED: Docusate 100 MG CAP PO PRN (19:16)
[2020-01-27] MEDS ORDERED: Lidocaine 1% (PF) 30 ML VIAL SC PRN (19:16)
[2020-01-27] MEDS ORDERED: Misoprostol 200 MCG TAB PR PRN (19:16)
[2020-01-27] MEDS ORDERED: Promethazine HCl 25 MG/ML VIAL IM PRN (19:16)
[2020-01-27] MEDS ORDERED: Acetaminophen 500 MG TAB PO PRN (19:16)
[2020-01-27 19:28] VITALS: BMI 26.1
[2020-01-27] MEDS: Lactated Ringer's 1,000 ML IV SCH (19:41)
[2020-01-27 19:43] LABS: Hemoglobin 12.7 g/dL (12.0-16.0); Mean Corpuscular HGB CONC 35.2 g/dL (32.0-36.0); Mean Corpuscular Hemoglobin 31.1 pg (27.0-31.0); Mean Corpuscular Volume 88.3 fL (78.0-98.0); Mean Platelet Volume 8.5 fL (7.4-10.4); Platelet Count 258 thou/uL (130-400); RBC Distribution Width 15.4 % (11.5-14.5); Red Blood Cell (RBC) Count 4.09 mill/uL (4.20-5.40); White Blood Cell (WBC) Count 10.1 thou/uL (4.8-10.8)
[2020-01-27] MEDS: Misoprostol 100 MCG TAB VAG SCH (19:50)
[2020-01-27 20:22] LABS: Hep B Surf Ag Non-Reactive S/CO (NonReactive); Syphilis Antibody Nonreactive (Nonreactive); Syphilis Antibody Index 0.06 S/CO (<1.00 Non-Reactive)
[2020-01-28] MEDS: Misoprostol 100 MCG TAB VAG SCH ×4 (00:06→18:38)
[2020-01-28] MEDS: Lactated Ringer's 1,000 ML IV SCH ×2 (05:27→09:39)
[2020-01-28] MEDS ORDERED: Fentanyl 4 mcg/Bup 0.1% Cadd 100 ML ONE (08:18)
[2020-01-28] MEDS ORDERED: Lactated Ringer's 500 ML IV PRN (09:50)
[2020-01-28] MEDS ORDERED: EPHEDRINE 25 MG/5 ML SYRINGE SLOW IVP PRN (09:50)
[2020-01-28] MEDS ORDERED: Naloxone HCl 0.4 mg/ml Vial IVP PRN ×2 (09:50)
[2020-01-28] MEDS ORDERED: Acetaminophen 325 MG TAB PO PRN (09:50)
[2020-01-28] MEDS ORDERED: Promethazine HCl 25 MG/ML VIAL IM PRN (09:50)
[2020-01-28] MEDS ORDERED: diphenhydrAMINE 50 MG/ML VIAL IVP PRN (09:50)
[2020-01-28] MEDS ORDERED: Ondansetron PF 4 MG/2 ML Vial IVP PRN ×2 (09:50→15:59)
[2020-01-28] MEDS ORDERED: Fentanyl 4 mcg/Bupivacaine 0.1% Cassette 100 ML EPIDURAL SCH (10:00)
[2020-01-28] MEDS ORDERED: Communication Order-Pharmacy FS SCH (10:00)
[2020-01-28] MEDS: Penicillin G 2.5 MILL.units 2.5 MILL.UNITS in Premix Bag 1 BAG IVPB SCH ×3 (12:14→18:37)
[2020-01-28] MEDS: NS / Oxytocin 40 units/1000ml 1,000 ML IV SCH ×2 (15:39→19:55)
[2020-01-28] MEDS ORDERED: hydrALAZINE 20 MG/ML VIAL SLOW IVP PRN (15:59)
[2020-01-28] MEDS ORDERED: Zolpidem Tartrate 5 MG TAB PO PRN (15:59)
[2020-01-28] MEDS ORDERED: Milk Of Magnesia 30 ML UDCUP PO PRN (15:59)
[2020-01-28] MEDS ORDERED: Benzocaine-Menthol 82.5 ML CAN TOP PRN (15:59)
[2020-01-28] MEDS ORDERED: Acetaminophen/Codeine 30-300mg Tablet PO PRN (15:59)
[2020-01-28] MEDS ORDERED: diphenhydrAMINE 25 MG CAP PO PRN (15:59)
[2020-01-28] MEDS ORDERED: Preparation H Ointment 28 GM TUBE PR PRN (15:59)
[2020-01-28] MEDS ORDERED: Bisacodyl 10 MG SUPP PR PRN (15:59)
[2020-01-28] MEDS ORDERED: Lanolin Ointment 7 GM TUBE TOP PRN (15:59)
[2020-01-28] MEDS ORDERED: Misoprostol 200 MCG TAB VAG PRN (15:59)
[2020-01-28] MEDS ORDERED: Hydrocortisone Sod Succ/PF 100 mg/2 ml Vial IVP SCH (16:30)
[2020-01-28] MEDS ORDERED: Hydrocortisone Sod Succ/PF 100 mg/2 ml Vial ONE (16:57)
[2020-01-28] MEDS: Ferrous Sulfate 325 MG TAB PO SCH (18:35)
[2020-01-28] MEDS: Docusate Calcium (SURFAK) 240 MG CAP PO SCH (21:38)
[2020-01-28] MEDS: Ibuprofen 800 MG TAB PO SCH (21:38)
[2020-01-29 06:16] LABS: Hemoglobin 11.1 g/dL (12.0-16.0); Mean Corpuscular HGB CONC 34.6 g/dL (32.0-36.0); Mean Corpuscular Hemoglobin 31.4 pg (27.0-31.0); Mean Corpuscular Volume 90.8 fL (78.0-98.0); Mean Platelet Volume 8.5 fL (7.4-10.4); Platelet Count 232 thou/uL (130-400); RBC Distribution Width 15.1 % (11.5-14.5); Red Blood Cell (RBC) Count 3.53 mill/uL (4.20-5.40); White Blood Cell (WBC) Count 21.4 thou/uL (4.8-10.8)
[2020-01-29] MEDS: Ibuprofen 800 MG TAB PO SCH ×3 (06:16→20:45)
[2020-01-29] MEDS ORDERED: Adacel (T-DAP) 0.5 ML SYRINGE IM ONE (09:00)
[2020-01-29] MEDS: Ferrous Sulfate 325 MG TAB PO SCH ×2 (10:08→19:10)
[2020-01-29] MEDS: Docusate Calcium (SURFAK) 240 MG CAP PO SCH ×2 (10:10→20:45)
[2020-01-29] MEDS: Prenatal Vitamin 1 TAB PO SCH (10:10)
[2020-01-29] MEDS: Acetaminophen/Codeine 30-300mg Tablet PO PRN ×2 (10:10→19:09)
[2020-01-30] MEDS: Acetaminophen/Codeine 30-300mg Tablet PO PRN ×2 (04:23→09:17)
[2020-01-30] MEDS: Prenatal Vitamin 1 TAB PO SCH (09:14)
[2020-01-30] MEDS: Docusate Calcium (SURFAK) 240 MG CAP PO SCH (09:14)
[2020-01-30] MEDS: Ibuprofen 800 MG TAB PO SCH (09:17)
[2020-01-30] MEDS: Ferrous Sulfate 325 MG TAB PO SCH (09:19)
[2020-01-30 10:07] VITALS: BP 122/82; TEMP 98.6
== END 2020-01-30 13:20 | disposition home or self-care (01) | DRG 806 ==
LOC: L&D 18:26 → EEVIPCON 18:26 → 3SE 01-28 18:12 → EDSTATUS 02-09 09:31
PROVIDERS: ADMIT Obstetrics & Gynecology; ATTEND Obstetrics & Gynecology
PROC: 10E0XZZ Delivery of Products of Conception, External Approach (ICD-10-PCS; principal; 2020-01-28)
PROC: 0KQM0ZZ Repair Perineum Muscle, Open Approach (ICD-10-PCS; 2020-01-28)
PROC: 3E0P7VZ Introduction of Hormone into Female Reproductive, Via Natural or Artificial Opening (ICD-10-PCS; 2020-01-28)
PROC: 3E033VJ Introduction of Other Hormone into Peripheral Vein, Percutaneous Approach (ICD-10-PCS; 2020-01-28)
DX: O36.5930 Maternal care for other known or suspected poor fetal growth, third trimester, not applicable or unspecified (principal); O99.354 Diseases of the nervous system complicating childbirth; Z37.0 Single live birth; O98.52 Other viral diseases complicating childbirth; O99.12 Other diseases of the blood and blood-forming organs and certain disorders involving the immune mechanism complicating childbirth; D68.62 Lupus anticoagulant syndrome; O99.344 Other mental disorders complicating childbirth; B00.1 Herpesviral vesicular dermatitis; O99.824 Streptococcus B carrier state complicating childbirth; F32.9 Major depressive disorder, single episode, unspecified; O70.1 Second degree perineal laceration during delivery; F41.9 Anxiety disorder, unspecified; Z3A.38 38 weeks gestation of pregnancy; Z79.52 Long term (current) use of systemic steroids; Z79.899 Other long term (current) drug therapy; G43.909 Migraine, unspecified, not intractable, without status migrainosus
CPT/HCPCS: 36415; 51702; 85027; 86780; 86850; 86900; 86901; 87340; 88307; J0595; J1720; J2405; J2540; J2550; J3490; S0020

== ENCOUNTER 2020-10-28 07:54 | Emergency (ER) | payer BC, OTHER | END 2020-10-28 08:35 | disposition home or self-care (01) | LOC: ERS 07:54 | DX: M32.9 Systemic lupus erythematosus, unspecified (principal); N89.8 Other specified noninflammatory disorders of vagina; F41.9 Anxiety disorder, unspecified; F32.9 Major depressive disorder, single episode, unspecified; Z79.899 Other long term (current) drug therapy | CPT/HCPCS: 99283 ==

== ENCOUNTER 2021-03-08 18:20 | Emergency (ER) | payer OTHER ==
[2021-03-08 19:25] LABS: #Basophils 0.1 thou/uL (0.0-0.2); #Lymphocytes 1.6 thou/uL (1.20-3.40); #Monocytes 0.4 thou/uL (0.11-0.59); #Neutrophils 4.9 thou/uL (1.40-6.50); %Eosinophils 0.6 % (0.0-10.0); %Lymphocytes 22.7 % (21.0-51.0); %Monocytes 5.5 % (0.0-10.0); %Neutrophils 70.2 % (42.0-75.0); Hemoglobin 16.7 g/dL (12.0-16.0); Mean Corpuscular HGB CONC 35.1 g/dL (32.0-36.0); Mean Corpuscular Hemoglobin 32.4 pg (27.0-31.0); Mean Corpuscular Volume 92.3 fL (78.0-98.0); Mean Platelet Volume 7.3 fL (7.4-10.4); Platelet Count 298 thou/uL (130-400); RBC Distribution Width 11.3 % (11.5-14.5); Red Blood Cell (RBC) Count 5.17 mill/uL (4.20-5.40)
[2021-03-08 19:42] LABS: BHCG - Serum Negative (NEGATIVE); Pregs Control Background? CLEAR/WHITE (CLR/WHITE); Pregs Control Bar Appear? YES (CONTROL BAR)
[2021-03-08 19:53] LABS: ALT (SGPT) 11 U/L (8-55); AST (SGOT) 19 U/L (5-34); Albumin 4.2 g/dL (3.5-5.0); Alkaline Phosphatase 55 U/L (40-110); Anion Gap 13 mmol/L (10-20); BUN (Urea Nitrogen) 12 mg/dL (7.0-18.7); Bilirubin, Total 0.8 mg/dL (0.2-1.2); Calc. Creatinine Clearance 0 mL/min (70-130); Calcium 9.5 mg/dL (7.8-10.44); Carbon Dioxide 22 mmol/L (22-29); Chloride 110 mmol/L (98-107); Globulin 3.7 g/dL (2.4-3.5); Glucose 78 mg/dL (70-105); Lipase 27 U/L (8-78); Protein, Total 7.9 g/dL (6.0-8.3); Sodium 141 mmol/L (136-145)
[2021-03-08] MEDS ORDERED: Ondansetron ODT 4 MG TAB ONE (21:07)
[2021-03-08 22:07] LABS: Bilirubin Negative (Negative); Blood, Urine Negative (Negative); Clarity Turbid (Clear); Glucose, Urine (Dipstick) Normal (Negative); Ketone, Urine Negative (Negative); Leukocyte 75 Leu/uL (Negative); Nitrite Negative (Negative); Protein, Urine (Dipstick) 70 mg/dL (Neg-Trace); RBC/HPF 0-3 HPF (0-3); Specific Gravity, Urine 1.028 (1.002-1.036); pH, Urine 6.5 (5.0-9.0)
[2021-03-08 22:18] LABS: Bacteria/HPF 1+ HPF (None Seen); Mucous/LPF 2+ LPF (<2+)
== END 2021-03-08 22:32 | disposition home or self-care (01) ==
LOC: ERS 18:20
DX: N39.0 Urinary tract infection, site not specified (principal)
CPT/HCPCS: 36415; 80053; 81003; 81015; 83690; 84703; 85025; 87086; 94760; Q0162

== ENCOUNTER 2021-05-17 14:17 | Emergency (ER) | payer OTHER ==
[2021-05-17] MEDS ORDERED: Acetaminophen 500 MG TAB ONE (17:53)
[2021-05-17] MEDS ORDERED: Metoclopramide HCl 10 MG/2 ML VIAL ONE (17:53)
[2021-05-17] MEDS ORDERED: Ketorolac Tromethamine 30 MG/ML VIAL ONE (17:53)
== END 2021-05-17 20:10 | disposition home or self-care (01) ==
LOC: ERS 14:17
DX: R51.9 Headache, unspecified (principal); Z79.899 Other long term (current) drug therapy
CPT/HCPCS: 96374; 96375; J1885; J2765

== ENCOUNTER 2021-08-04 15:56 | Emergency (ER) | payer OTHER ==
[2021-08-05 21:37] LABS: SARS-CoV-2 PCR by NAA Not Detected (NotDetected)
== END 2021-08-04 19:35 | disposition home or self-care (01) ==
LOC: ERS 15:56
DX: R05 Cough (principal); Z20.822 Contact with and (suspected) exposure to COVID-19
CPT/HCPCS: 99283; U0003; U0005

== ENCOUNTER 2021-08-18 18:30 | Emergency (ER) | payer OTHER | END 2021-08-19 11:34 | disposition left against medical advice (07) | LOC: ERS 18:30 | DX: Z53.21 Procedure and treatment not carried out due to patient leaving prior to being seen by health care provider (principal) ==

== ENCOUNTER 2021-10-31 13:49 | Emergency (ER) | payer OTHER ==
[2021-10-31 14:20] LABS: #Basophils 0.1 thou/uL (0.0-0.2); #Lymphocytes 1.5 thou/uL (1.20-3.40); #Monocytes 0.5 thou/uL (0.11-0.59); #Neutrophils 6.8 thou/uL (1.40-6.50); %Basophils 0.7 % (0.0-1.0); %Eosinophils 0.5 % (0.0-10.0); %Lymphocytes 16.7 % (21.0-51.0); %Neutrophils 76.1 % (42.0-75.0); Hemoglobin 15.4 g/dL (12.0-16.0); Mean Corpuscular HGB CONC 34.3 g/dL (32.0-36.0); Mean Corpuscular Hemoglobin 32.4 pg (27.0-31.0); Mean Corpuscular Volume 94.4 fL (78.0-98.0); Mean Platelet Volume 6.7 fL (7.4-10.4); Platelet Count 316 thou/uL (130-400); RBC Distribution Width 11.6 % (11.5-14.5); Red Blood Cell (RBC) Count 4.77 mill/uL (4.20-5.40)
[2021-10-31 14:42] LABS: ALT (SGPT) 13 U/L (8-55); AST (SGOT) 18 U/L (5-34); Albumin 4.1 g/dL (3.5-5.0); Alkaline Phosphatase 70 U/L (40-110); Anion Gap 11 mmol/L (10-20); BUN (Urea Nitrogen) 7 mg/dL (7.0-18.7); Bilirubin, Total 0.6 mg/dL (0.2-1.2); Calc. Creatinine Clearance 0 mL/min (70-130); Calcium 9.6 mg/dL (7.8-10.44); Carbon Dioxide 25 mmol/L (22-29); Chloride 107 mmol/L (98-107); Globulin 4.2 g/dL (2.4-3.5); Glucose 94 mg/dL (70-105); Potassium 3.7 mmol/L (3.5-5.1); Protein, Total 8.3 g/dL (6.0-8.3); Sodium 139 mmol/L (136-145)
[2021-10-31] MEDS ORDERED: Dexamethasone 4 mg/ml Vial ONE (17:36)
[2021-10-31] MEDS ORDERED: Dexamethasone 10 MG/ML VIAL ONE (17:39)
[2021-10-31] MEDS ORDERED: Morphine 4 MG/ML VIAL ONE (18:22)
== END 2021-10-31 19:05 | disposition home or self-care (01) ==
LOC: ERS 13:49
DX: D86.9 Sarcoidosis, unspecified (principal)
CPT/HCPCS: 36415; 71045; 80053; 85025; 93005; 96374; 96375; J1100; J2270

== ENCOUNTER 2021-11-03 07:22 | Emergency (ER) | payer OTHER ==
[2021-11-03] MEDS ORDERED: Cyclobenzaprine 10 MG TAB ONE (07:55)
[2021-11-03] MEDS ORDERED: Ketorolac Tromethamine 30 MG/ML VIAL ONE (07:56)
== END 2021-11-03 08:10 | disposition home or self-care (01) ==
LOC: ERS 07:22
DX: S16.1XXA Strain of muscle, fascia and tendon at neck level, initial encounter (principal); X58.XXXA Exposure to other specified factors, initial encounter
CPT/HCPCS: 96372; 99283; J1885

== ENCOUNTER 2022-01-24 15:37 | Emergency (ER) | payer BC, OTHER ==
[~2022-01-24 15:37] MED LIST changes: -ISOVUE-370 76%-LOCM 1 ML ONE; +Iopamidol 370 76% 100 ML VIAL ONE
[2022-01-24] MEDS ORDERED: Ondansetron PF 4 MG/2 ML Vial ONE (17:26)
[2022-01-24] MEDS ORDERED: Ketorolac Tromethamine 30 MG/ML VIAL ONE (17:27)
[2022-01-24 18:03] LABS: Hemoglobin 14.5 g/dL (12.0-16.0); Mean Corpuscular HGB CONC 34.4 g/dL (32.0-36.0); Mean Corpuscular Hemoglobin 32.2 pg (27.0-31.0); Mean Corpuscular Volume 93.5 fL (78.0-98.0); Mean Platelet Volume 8.2 fL (7.4-10.4); Platelet Count 251 thou/uL (130-400); RBC Distribution Width 11.9 % (11.5-14.5); Red Blood Cell (RBC) Count 4.51 mill/uL (4.20-5.40); White Blood Cell (WBC) Count 6.4 thou/uL (4.8-10.8)
[2022-01-24 18:04] LABS: BHCG - Serum Negative (NEGATIVE); Pregs Control Background? CLEAR/WHITE (CLR/WHITE); Pregs Control Bar Appear? YES (CONTROL BAR)
[2022-01-24 18:14] LABS: Lymphocytes 31 % (21-51); MDiff Complete? YES; Monocytes 4 % (0-10); Neutrophil 64 % (42-75); Platelet Clumps SLIGHT; Platelet Morphology Comment Appears Adequate; RBC Morphology Normal; Reactive Lymphocytes 1 % (0-10)
[2022-01-24 18:22] LABS: ALT (SGPT) 8 U/L (8-55); AST (SGOT) 16 U/L (5-34); Albumin 3.9 g/dL (3.5-5.0); Alkaline Phosphatase 57 U/L (40-110); Anion Gap 13 mmol/L (10-20); BUN (Urea Nitrogen) 12 mg/dL (7.0-18.7); Bilirubin, Total 0.6 mg/dL (0.2-1.2); Calc. Creatinine Clearance 0 mL/min (70-130); Calcium 9.4 mg/dL (7.8-10.44); Carbon Dioxide 23 mmol/L (22-29); Chloride 109 mmol/L (98-107); Globulin 3.7 g/dL (2.4-3.5); Glucose 89 mg/dL (70-105); Lipase 14 U/L (8-78); Potassium 3.5 mmol/L (3.5-5.1); Protein, Total 7.6 g/dL (6.0-8.3); Sodium 141 mmol/L (136-145)
[2022-01-24 20:15] LABS: Bilirubin Negative (Negative); Blood, Urine Negative (Negative); Clarity Clear (Clear); Glucose, Urine (Dipstick) Normal (Negative); Ketone, Urine Negative (Negative); Leukocyte Negative Leu/uL (Negative); Nitrite Negative (Negative); Protein, Urine (Dipstick) 30 mg/dL (Neg-Trace); Urobilinogen Normal mg/dL (Less than 2); pH, Urine 7.5 (5.0-9.0)
[2022-01-24 20:21] LABS: Bacteria/HPF None Seen HPF (None Seen); RBC/HPF 0-3 HPF (0-3); Squamous Epithelial 0-3 HPF (0-3); WBC/HPF 0-3 HPF (0-3)
[2022-01-24 20:22] LABS: Specific Gravity, Urine Greater than 1.060 (1.002-1.036)
== END 2022-01-24 21:12 | disposition home or self-care (01) ==
LOC: ERS 15:37
DX: T83.32XA Displacement of intrauterine contraceptive device, initial encounter (principal); R11.2 Nausea with vomiting, unspecified
CPT/HCPCS: 74177; 80053; 81003; 81015; 83690; 84703; 85025; 96374; 96375; J1885; J2405; Q9967

== ENCOUNTER 2022-01-25 19:00 | Emergency (ER) | payer OTHER ==
[2022-01-25 19:35] LABS: #Lymphocytes 1.2 thou/uL (1.20-3.40); #Monocytes 0.3 thou/uL (0.11-0.59); #Neutrophils 6.3 thou/uL (1.40-6.50); %Basophils 0.6 % (0.0-1.0); %Eosinophils 0.2 % (0.0-10.0); %Lymphocytes 14.8 % (21.0-51.0); %Monocytes 3.8 % (0.0-10.0); %Neutrophils 80.6 % (42.0-75.0); Mean Corpuscular HGB CONC 33.6 g/dL (32.0-36.0); Mean Corpuscular Hemoglobin 31.8 pg (27.0-31.0); Mean Corpuscular Volume 94.6 fL (78.0-98.0); Platelet Count 326 thou/uL (130-400); RBC Distribution Width 11.5 % (11.5-14.5); Red Blood Cell (RBC) Count 4.72 mill/uL (4.20-5.40); White Blood Cell (WBC) Count 7.8 thou/uL (4.8-10.8)
[2022-01-25 19:39] LABS: Pregnancy Test - Urine (BHCG) Negative (Negative); Pregu Control Background? CLEAR/WHITE (CLR/WHITE); Pregu Control Bar Appear? YES (CONTROL BAR); Specific Gravity 1.024 (1.002-1.036)
[2022-01-25 19:46] LABS: Bilirubin Negative (Negative); Blood, Urine 1+ (Negative); Clarity Extra Turbid (Clear); Glucose, Urine (Dipstick) Normal (Negative); Ketone, Urine 20 mg/dL (Negative); Leukocyte 25 Leu/uL (Negative); Nitrite Negative (Negative); Protein, Urine (Dipstick) 20 mg/dL (Neg-Trace); RBC/HPF 0-3 HPF (0-3); Specific Gravity, Urine 1.024 (1.002-1.036); pH, Urine 6.5 (5.0-9.0)
[2022-01-25 19:47] LABS: Bacteria/HPF 2+ HPF (None Seen); Squamous Epithelial 0-3 HPF (0-3); WBC/HPF 0-3 HPF (0-3)
[2022-01-25 20:29] LABS: ALT (SGPT) 8 U/L (8-55); AST (SGOT) 16 U/L (5-34); Albumin 4.2 g/dL (3.5-5.0); Alkaline Phosphatase 60 U/L (40-110); Anion Gap 16 mmol/L (10-20); BUN (Urea Nitrogen) 13 mg/dL (7.0-18.7); Bilirubin, Total 0.9 mg/dL (0.2-1.2); Calc. Creatinine Clearance 0 mL/min (70-130); Calcium 9.5 mg/dL (7.8-10.44); Carbon Dioxide 21 mmol/L (22-29); Chloride 105 mmol/L (98-107); Globulin 4.1 g/dL (2.4-3.5); Glucose 97 mg/dL (70-105); Lipase 16 U/L (8-78); Potassium 3.4 mmol/L (3.5-5.1); Protein, Total 8.3 g/dL (6.0-8.3); Sodium 139 mmol/L (136-145)
[2022-01-25] MEDS ORDERED: Morphine 4 MG/ML VIAL ONE (20:39)
[2022-01-25] MEDS ORDERED: Ondansetron PF 4 MG/2 ML Vial ONE (20:39)
== END 2022-01-25 20:07 | disposition home or self-care (01) ==
LOC: ERS 19:00
DX: N39.0 Urinary tract infection, site not specified (principal); R11.2 Nausea with vomiting, unspecified
CPT/HCPCS: 36415; 80053; 81003; 81025; 83690; 85025; 87086; 93005; 96374; 96375; J2270; J2405

== ENCOUNTER 2022-01-27 19:10 | Emergency (ER) | payer BC, OTHER ==
[2022-01-27] MEDS ORDERED: Ondansetron PF 4 MG/2 ML Vial ONE (20:25)
[2022-01-27 21:13] LABS: #Lymphocytes 0.8 thou/uL (1.20-3.40); #Monocytes 0.3 thou/uL (0.11-0.59); #Neutrophils 4.9 thou/uL (1.40-6.50); %Basophils 0.4 % (0.0-1.0); %Eosinophils 0.1 % (0.0-10.0); %Lymphocytes 12.8 % (21.0-51.0); %Monocytes 4.6 % (0.0-10.0); Hemoglobin 14.4 g/dL (12.0-16.0); Mean Corpuscular HGB CONC 34.3 g/dL (32.0-36.0); Mean Corpuscular Hemoglobin 32.3 pg (27.0-31.0); Mean Corpuscular Volume 94.1 fL (78.0-98.0); Mean Platelet Volume 7.3 fL (7.4-10.4); Platelet Count 285 thou/uL (130-400); RBC Distribution Width 11.5 % (11.5-14.5); Red Blood Cell (RBC) Count 4.46 mill/uL (4.20-5.40)
[2022-01-27 21:38] LABS: ALT (SGPT) 9 U/L (8-55); AST (SGOT) 13 U/L (5-34); Albumin 3.9 g/dL (3.5-5.0); Alkaline Phosphatase 54 U/L (40-110); Anion Gap 17 mmol/L (10-20); BUN (Urea Nitrogen) 12 mg/dL (7.0-18.7); Bilirubin, Total 0.9 mg/dL (0.2-1.2); Calc. Creatinine Clearance 0 mL/min (70-130); Carbon Dioxide 21 mmol/L (22-29); Chloride 106 mmol/L (98-107); Globulin 3.6 g/dL (2.4-3.5); Glucose 72 mg/dL (70-105); Lipase 12 U/L (8-78); Potassium 3.5 mmol/L (3.5-5.1); Protein, Total 7.5 g/dL (6.0-8.3); Sodium 140 mmol/L (136-145)
[2022-01-27 21:55] LABS: BHCG - Serum Negative (NEGATIVE); Pregs Control Background? CLEAR/WHITE (CLR/WHITE); Pregs Control Bar Appear? YES (CONTROL BAR)
== END 2022-01-27 22:05 | disposition home or self-care (01) ==
LOC: ERS 19:10
DX: T83.32XA Displacement of intrauterine contraceptive device, initial encounter (principal); R11.2 Nausea with vomiting, unspecified
CPT/HCPCS: 36415; 80053; 83690; 84703; 85025; 96361; 96374; J2405

== ENCOUNTER 2022-11-02 17:00 | Emergency (ER) | payer BC, OTHER ==
[2022-11-02 17:32] LABS: #Monocytes 0.4 thou/uL (0.11-0.59); %Basophils 0.6 % (0.0-1.0); %Eosinophils 0.5 % (0.0-10.0); %Lymphocytes 18.1 % (21.0-51.0); %Monocytes 6.7 % (0.0-10.0); %Neutrophils 74.1 % (42.0-75.0); Hemoglobin 14.4 g/dL (12.0-16.0); Mean Corpuscular HGB CONC 34.1 g/dL (32.0-36.0); Mean Platelet Volume 7.7 fL (7.4-10.4); Platelet Count 259 10x3/uL (130-400); RBC Distribution Width 13.4 % (11.5-14.5); Red Blood Cell (RBC) Count 4.64 mill/uL (4.20-5.40); White Blood Cell (WBC) Count 5.3 10x3/uL (4.8-10.8)
[2022-11-02 17:43] LABS: Bacteria/HPF 1+ HPF (None Seen); Bilirubin Negative (Negative); Blood, Urine 2+ (Negative); Clarity Turbid (Clear); Glucose, Urine (Dipstick) Normal (Negative); Ketone, Urine Negative (Negative); Leukocyte Negative Leu/uL (Negative); Nitrite Negative (Negative); Protein, Urine (Dipstick) 30 mg/dL (Neg-Trace); RBC/HPF 0-3 HPF (0-3); Specific Gravity, Urine 1.027 (1.002-1.036); Urobilinogen Normal mg/dL (Less than 2); WBC/HPF 0-3 HPF (0-3)
== END 2022-11-02 18:43 | disposition home or self-care (01) ==
LOC: ERS 17:00
DX: O20.0 Threatened abortion (principal)
CPT/HCPCS: 36415; 76856; 81003; 81015; 84702; 85025; 86900; 86901

== ENCOUNTER 2023-06-22 02:56 | Observation (INO) | payer OTHER ==
[2023-06-22 03:21] LABS: #Monocytes 0.6 thou/uL (0.11-0.59); #Neutrophils 5.8 thou/uL (1.40-6.50); %Basophils 0.1 % (0.0-1.0); %Eosinophils 0.1 % (0.0-10.0); %Lymphocytes 9.6 % (21.0-51.0); %Monocytes 8.2 % (0.0-10.0); %Neutrophils 81.9 % (42.0-75.0); Hemoglobin 11.2 g/dL (12.0-16.0); Mean Corpuscular HGB CONC 32.8 g/dL (32.0-36.0); Mean Corpuscular Hemoglobin 25.3 pg (27.0-31.0); Mean Platelet Volume 9.7 fL (7.4-10.4); Platelet Count 323 10x3/uL (130-400); RBC Distribution Width 18.2 % (11.5-14.5); Red Blood Cell (RBC) Count 4.43 mill/uL (4.20-5.40); White Blood Cell (WBC) Count 7.1 10x3/uL (4.8-10.8)
[2023-06-22 03:31] LABS: BHCG - Serum Negative (NEGATIVE); Pregs Control Background? CLEAR/WHITE (CLR/WHITE); Pregs Control Bar Appear? YES (CONTROL BAR)
[2023-06-22 03:43] LABS: ALT (SGPT) 14 U/L (8-55); AST (SGOT) 18 U/L (5-34); Albumin 4.1 g/dL (3.5-5.0); Alkaline Phosphatase 67 U/L (40-110); Anion Gap 12 mmol/L (10-20); BUN (Urea Nitrogen) 11 mg/dL (7.0-18.7); Bilirubin, Total 0.4 mg/dL (0.2-1.2); Calc. Creatinine Clearance 0 mL/min (70-130); Calcium 9.5 mg/dL (7.8-10.44); Carbon Dioxide 25 mmol/L (22-29); Chloride 103 mmol/L (98-107); Estimated GFR 107; Globulin 4.4 g/dL (2.4-3.5); Glucose 92 mg/dL (70-105); Magnesium 1.9 mg/dL (1.6-2.6); Protein, Total 8.5 g/dL (6.0-8.3); Sodium 136 mmol/L (136-145)
[2023-06-22] MEDS ORDERED: Ketorolac Tromethamine 30 MG/ML VIAL ONE (03:49)
[2023-06-22] MEDS ORDERED: Acetaminophen 500 MG TAB ONE (04:05)
[2023-06-22] MEDS ORDERED: Morphine 4 MG/ML VIAL ONE (04:08)
[2023-06-22] MEDS ORDERED: predniSONE 50 MG TAB PO SCH (06:00)
[2023-06-22] MEDS ORDERED: Ondansetron PF 4 MG/2 ML Vial IVP PRN (06:00)
[2023-06-22] MEDS ORDERED: Ondansetron ODT 4 MG TAB SL PRN (06:00)
[2023-06-22] MEDS ORDERED: Acetaminophen 325 MG TAB PO PRN (06:00)
[2023-06-22 08:05] LABS: Troponin I Less than 0.010 ng/mL (< 0.028)
[2023-06-22 08:06] VITALS: BMI 17.8
[2023-06-22] MEDS ORDERED: Hydroxychloroquine Sulfate 200 MG TAB PO SCH (09:00)
[2023-06-22 10:00] LABS: Troponin I Less than 0.010 ng/mL (< 0.028)
[2023-06-22] MEDS: Famotidine 20 MG TAB PO SCH ×2 (11:25→20:43)
[2023-06-22] MEDS: Ibuprofen 600 MG TAB PO PRN ×2 (15:12→20:43)
[2023-06-22] MEDS: Acetaminophen 325 MG TAB PO PRN (20:43)
[2023-06-22] MEDS: Hydroxychloroquine Sulfate 200 MG TAB PO SCH (20:43)
[2023-06-22] MEDS ORDERED: Ketorolac Tromethamine 30 MG/ML VIAL IVP SCH (22:30)
[2023-06-23] MEDS: Acetaminophen 325 MG TAB PO PRN ×2 (03:32→08:19)
[2023-06-23] MEDS: Ibuprofen 600 MG TAB PO PRN ×2 (03:32→10:23)
[2023-06-23] MEDS: Famotidine 20 MG TAB PO SCH (08:15)
[2023-06-23] MEDS: Hydroxychloroquine Sulfate 200 MG TAB PO SCH (08:19)
[2023-06-23 12:27] VITALS: BP 99/58; TEMP 98.3
[2023-06-23] MEDS ORDERED: Ketorolac Tromethamine 30 MG/ML VIAL IVP SCH (13:30)
== END 2023-06-23 14:35 | disposition home or self-care (01) ==
LOC: ERS 02:56 → 2SW 07:36
PROVIDERS: ADMIT Student in an Organized Health Care Education/Training Program; ATTEND Emergency Medicine
DX: R07.89 Other chest pain (principal); L93.0 Discoid lupus erythematosus; I45.10 Unspecified right bundle-branch block; F12.90 Cannabis use, unspecified, uncomplicated; Z79.899 Other long term (current) drug therapy
CPT/HCPCS: 36415; 71045; 80053; 83735; 83880; 84484; 84703; 85025; 93005; 96361; 96374; 96375; 96376; G0378; J1885; J2270; J7512

== ENCOUNTER 2023-07-18 05:16 | Emergency (ER) | payer OTHER ==
[2023-07-18] MEDS ORDERED: Ketorolac Tromethamine 30 MG/ML VIAL ONE (05:40)
[2023-07-18 06:01] LABS: #Monocytes 0.2 thou/uL (0.11-0.59); #Neutrophils 3.6 thou/uL (1.40-6.50); %Basophils 0.2 % (0.0-1.0); %Eosinophils 0.7 % (0.0-10.0); %Lymphocytes 10.4 % (21.0-51.0); %Monocytes 5.3 % (0.0-10.0); %Neutrophils 83.2 % (42.0-75.0); Hematocrit 31.6 % (36.0-47.0); Hemoglobin 10.4 g/dL (12.0-16.0); Mean Corpuscular HGB CONC 32.9 g/dL (32.0-36.0); Mean Corpuscular Hemoglobin 25.3 pg (27.0-31.0); Mean Corpuscular Volume 76.9 fl (78.0-98.0); Mean Platelet Volume 8.9 fL (7.4-10.4); Platelet Count 419 10x3/uL (130-400); RBC Distribution Width 17.8 % (11.5-14.5); Red Blood Cell (RBC) Count 4.11 mill/uL (4.20-5.40); White Blood Cell (WBC) Count 4.3 10x3/uL (4.8-10.8)
[2023-07-18 06:22] LABS: ALT (SGPT) 11 U/L (8-55); AST (SGOT) 18 U/L (5-34); Albumin 3.5 g/dL (3.5-5.0); Alkaline Phosphatase 59 U/L (40-110); Anion Gap 9 mmol/L (10-20); BUN (Urea Nitrogen) 12 mg/dL (7.0-18.7); Bilirubin, Total 0.3 mg/dL (0.2-1.2); Calc. Creatinine Clearance 0 mL/min (70-130); Carbon Dioxide 26 mmol/L (22-29); Chloride 104 mmol/L (98-107); Estimated GFR 125; Globulin 4.6 g/dL (2.4-3.5); Glucose 98 mg/dL (70-105); Potassium 3.8 mmol/L (3.5-5.1); Protein, Total 8.1 g/dL (6.0-8.3); Sodium 135 mmol/L (136-145)
[2023-07-18 06:27] LABS: Troponin I Less than 0.010 ng/mL (< 0.028)
[2023-07-18] MEDS ORDERED: Morphine 4 MG/ML VIAL ONE (06:50)
[2023-07-18] MEDS ORDERED: Ondansetron PF 4 MG/2 ML Vial ONE (06:50)
[2023-07-18 07:30] LABS: BHCG - Serum Negative (NEGATIVE); Pregs Control Background? CLEAR/WHITE (CLR/WHITE); Pregs Control Bar Appear? YES (CONTROL BAR)
[2023-07-18 07:32] LABS: SARS-CoV-2 NAA Rapid Test Not Detected (NotDetected)
== END 2023-07-18 08:58 | disposition home or self-care (01) ==
LOC: ERS 05:16
DX: B34.9 Viral infection, unspecified (principal); M32.9 Systemic lupus erythematosus, unspecified; D64.9 Anemia, unspecified; Z20.822 Contact with and (suspected) exposure to COVID-19
CPT/HCPCS: 71045; 71275; 80053; 84484; 84703; 85025; 85379; 93005; 96374; 96375; J1885; J2270; J2405

== ENCOUNTER 2023-07-23 11:04 | Emergency (ER) | payer OTHER ==
[2023-07-23] MEDS ORDERED: Ketorolac Tromethamine 30 MG/ML VIAL ONE ×2 (12:09→12:10)
== END 2023-07-23 13:01 | disposition home or self-care (01) ==
LOC: ERS 11:04
DX: M32.9 Systemic lupus erythematosus, unspecified (principal)
CPT/HCPCS: 96372; 99283; J1885

== ENCOUNTER 2023-08-10 00:39 | Emergency (ER) | payer OTHER, SELFPAY ==
[2023-08-10 01:47] LABS: #Monocytes 0.2 thou/uL (0.11-0.59); #Neutrophils 3.5 thou/uL (1.40-6.50); %Basophils 0.2 % (0.0-1.0); %Eosinophils 0.5 % (0.0-10.0); %Lymphocytes 16.7 % (21.0-51.0); %Monocytes 3.8 % (0.0-10.0); %Neutrophils 78.6 % (42.0-75.0); Hematocrit 32.6 % (36.0-47.0); Hemoglobin 10.4 g/dL (12.0-16.0); Mean Corpuscular HGB CONC 31.9 g/dL (32.0-36.0); Mean Corpuscular Volume 78.4 fl (78.0-98.0); Platelet Count 445 10x3/uL (130-400); RBC Distribution Width 17.6 % (11.5-14.5); Red Blood Cell (RBC) Count 4.16 mill/uL (4.20-5.40); White Blood Cell (WBC) Count 4.4 10x3/uL (4.8-10.8)
[2023-08-10 02:09] LABS: Anion Gap 12 mmol/L (10-20); BUN (Urea Nitrogen) 11 mg/dL (7.0-18.7); Calc. Creatinine Clearance 0 mL/min (70-130); Carbon Dioxide 23 mmol/L (22-29); Chloride 106 mmol/L (98-107); Estimated GFR 123; Potassium 3.2 mmol/L (3.5-5.1); Sodium 138 mmol/L (136-145)
[2023-08-10 02:10] LABS: ALT (SGPT) 9 U/L (8-55); AST (SGOT) 20 U/L (5-34); Albumin 3.2 g/dL (3.5-5.0); Alkaline Phosphatase 59 U/L (40-110); Bilirubin, Total 0.2 mg/dL (0.2-1.2); Calcium 8.6 mg/dL (7.8-10.44); Globulin 3.9 g/dL (2.4-3.5); Glucose 102 mg/dL (70-105); Lipase 15 U/L (8-78); Protein, Total 7.1 g/dL (6.0-8.3)
[2023-08-10 02:20] LABS: Troponin I Less than 0.010 ng/mL (< 0.028)
[2023-08-10] MEDS ORDERED: Diazepam 5 MG TAB ONE (02:44)
[2023-08-10] MEDS ORDERED: Acetaminophen 500 MG TAB ONE (02:45)
[2023-08-10] MEDS ORDERED: Ketorolac Tromethamine 30 MG/ML VIAL ONE (02:45)
[2023-08-10] MEDS ORDERED: Ondansetron PF 4 MG/2 ML Vial ONE (03:58)
[2023-08-10] MEDS ORDERED: Ondansetron ODT 8 MG TAB ONE (03:59)
[2023-08-10] MEDS ORDERED: Haloperidol Lactate 5 MG/ML VIAL ONE (04:19)
[2023-08-10] MEDS ORDERED: Mag-Al 1200 mg/1200 mg/30 ML UDCUP ONE (04:19)
== END 2023-08-10 05:15 | disposition home or self-care (01) ==
LOC: ERS 00:39
DX: R07.9 Chest pain, unspecified (principal); M79.10 Myalgia, unspecified site
CPT/HCPCS: 36415; 71045; 80053; 83690; 84484; 85025; 93005; 96372; 96374; J1630; J1885; J2405; Q0162

== ENCOUNTER 2024-05-28 19:07 | Emergency (ER) | payer SELFPAY | END 2024-05-28 22:46 | disposition left against medical advice (07) | LOC: ERS 19:07 | DX: Z53.21 Procedure and treatment not carried out due to patient leaving prior to being seen by health care provider (principal) ==

== ENCOUNTER 2024-05-29 14:17 | Emergency (ER) | payer SELFPAY ==
[~2024-05-29 14:17] MED LIST changes: -Iopamidol 370 76% 100 ML VIAL ONE; +Iopamidol-370 76% 500 ML MDV (1 ML CHARGE) ONE
[2024-05-29 15:52] LABS: #Basophils Less than 0.03 10x3/uL (0.0-0.2); #Eosinphils Less than 0.03 10x3/uL (0.0-0.7); %Lymphocytes 10.3 % (21.0-51.0); %Monocytes 3.7 % (0.0-10.0); %Neutrophils 85.7 % (42.0-75.0); Hematocrit 28.7 % (36.0-47.0); Mean Corpuscular HGB CONC 31.4 g/dL (32.0-36.0); Mean Corpuscular Hemoglobin 21.4 pg (27.0-31.0); Mean Corpuscular Volume 68.2 fL (78.0-98.0); Mean Platelet Volume 8.8 fL (7.4-10.4); Platelet Count 459 10x3/uL (130-400); RBC Distribution Width 18.2 % (11.5-14.5); Red Blood Cell (RBC) Count 4.21 mill/uL (4.20-5.40)
[2024-05-29 16:17] LABS: HCG, Total Quant Less than 2.42 mIU/mL (See Ranges); Hypochromia SLIGHT = 6-15 cells HPF (0-5); Macrocytosis SLIGHT = 6-15 cells HPF (0-5); Ovalocytes SLIGHT = 2-5 cells HPF (0-1); Platelet Adequacy Comment Platelets Increased; Polychromasia SLIGHT = 2-3 cells HPF (0-2); Target Cells SLIGHT = 2-5 cells HPF (0-1); Tear Drops SLIGHT = 2-5 cells HPF (0-1)
[2024-05-29 16:19] LABS: Amphetamine Not Detected (NotDetected); Barbiturates Screen Not Detected (NotDetected); Benzodiazepine Screen Not Detected (NotDetected); Cocaine Metabolite Screen Not Detected (NotDetected); Methadone Not Detected (NotDetected); Methamphetamine Not Detected (NotDetected); Opiate Screen Not Detected (NotDetected); Oxycodone Screen Not Detected (NotDetected); Phencyclidine (PCP) Not Detected (NotDetected); THC/Cannabinoid Screen Not Detected (NotDetected); Tricyclic Screen Not Detected (NotDetected)
[2024-05-29 16:33] LABS: Influenza A by NAA Not Detected (NotDetected); Influenza B by NAA Not Detected (NotDetected); SARS-CoV-2 NAA Rapid Test Not Detected (NotDetected)
[2024-05-29 16:35] LABS: Bilirubin Negative (Negative); CAUTI Indications for Culture Fever or rigors; Glucose, Urine (Dipstick) Normal (Negative); Ketone, Urine Negative (Negative); Leukocyte 75 Leu/uL (Negative); Nitrite Negative (Negative); Protein, Urine (Dipstick) Negative (Neg-Trace); Specific Gravity, Urine 1.021 (1.002-1.036); Urobilinogen Normal mg/dL (Less than 2)
[2024-05-29 16:51] LABS: Bacteria/HPF 1+ HPF (None Seen); Clarity Cloudy (Clear)
[2024-05-29] MEDS ORDERED: Acetaminophen 500 MG TAB ONE (16:55)
[2024-05-29 16:56] LABS: Blood, Urine Trace (Negative)
[2024-05-29 16:57] LABS: Urine Culture Reflex Yes Yes
[2024-05-29 17:11] LABS: Troponin I Less than 0.010 ng/mL (< 0.028)
[2024-05-29 17:12] LABS: Acetaminophen Less than 10 mcg/mL (10.0-30.0)
[2024-05-29 17:13] LABS: Alcohol Less than 10.0 mg/dL (Less than 10); Anion Gap 13 mmol/L (10-20); BUN (Urea Nitrogen) 13 mg/dL (7.0-18.7); Calc. Creatinine Clearance 0 mL/min (70-130); Carbon Dioxide 21 mmol/L (22-29); Chloride 104 mmol/L (98-107); Estimated GFR 125; Potassium 3.8 mmol/L (3.5-5.1); Salicylate Less than 8.0 mg/dL (15.0-30.0); Sodium 134 mmol/L (136-145)
[2024-05-29 17:14] LABS: ALT (SGPT) 6 U/L (8-55); AST (SGOT) 14 U/L (5-34); Albumin 2.9 g/dL (3.5-5.0); Alkaline Phosphatase 46 U/L (40-110); Bilirubin, Total 0.4 mg/dL (0.2-1.2); Calcium 8.7 mg/dL (7.6-10.4); Globulin 4.2 g/dL (2.4-3.5); Glucose 86 mg/dL (70-105); Protein, Total 7.1 g/dL (6.0-8.3)
[2024-05-29 17:29] LABS: Lipase 17 U/L (8-78)
== END 2024-05-29 19:08 | disposition home or self-care (01) ==
LOC: ERS 14:17
DX: M32.9 Systemic lupus erythematosus, unspecified (principal); R07.9 Chest pain, unspecified; R42 Dizziness and giddiness; H05.229 Edema of unspecified orbit; Z55.6 Problems related to health literacy
CPT/HCPCS: 36415; 71046; 71275; 80053; 80306; 80307; 81001; 83605; 83690; 83880; 84443; 84484; 84702; 85025; 87081; 87086; 87430; 93005; 96360; 96361; Q9967